=== PATIENT | male | born 1960 | race Two or more races ===

== ENCOUNTER 2017-12-04 23:02 | Emergency (ER) | payer MEDICARE, MEDICAID ==
[~2017-12-04] VITALS: Ht 167.6 cm; Wt 111.6 kg
[~2017-12-04 23:02] MED LIST: UNK INSULIN; [UNRECOGNIZED DRUG - REMARK]
--- NOTE | 2017-12-04 23:02 | NUR ---
PT A/OX4 BREATHING EFFORTLESSLY ON ROOM AIR, PT STATES HE WAS HAVING AN ARGUMENT WITH HIS SISTER AND HE STARTED HVAING A PROBLEM GETTING WORDS OUT, PT STATES HIS SPEACH IS SLURRED, IV PLACED PRIOR TO ARRIVAL AND ANOTHER PLACED IN THE ER, LABS DRAWN, AT BEDSIDE, WILL CONTINUE TO MONITOR.
--- NOTE | 2017-12-04 23:10 | NUR ---
INITIATED CODE STROKE
--- NOTE | 2017-12-04 23:11 | NUR ---
[facility] TELE STROKE LINE CONTACTED BY MIGUELINA DUKES
--- NOTE | 2017-12-04 23:14 | NUR ---
DR CURIEL ON THE PHONE WITH NEUROLOGIST DR RIVERA
--- NOTE | 2017-12-04 23:17 | NUR ---
PATIENT TAKEN TO CT
[2017-12-04] MEDS ORDERED: IOHEXOL-350 100 ML VIAL IV ONE (23:18)
[2017-12-04] MEDS ORDERED: CT SWABBABLE VALVE TRANS SET 1 EA INFUS.SET MC ONE (23:18)
[2017-12-04 23:28] LABS: BASOPHILS # (AUTO) 0.1 /CMM (0.0-0.2); BASOPHILS % (AUTO) 1.4 % (0.0-2.0); EOSINOPHILS # (AUTO) 0.2 /CMM (0.0-0.7); EOSINOPHILS % (AUTO) 4.1 % (0.0-6.0); HEMATOCRIT 33 % (39-51); HEMOGLOBIN 11.2 g/dL (13.5-17.5); LYMPHOCYTES % (AUTO) 16.4 % (20.0-44.0); MEAN CORPUSCULAR HEMOGLOBIN 30 PG (26.0-33.0); MEAN CORPUSCULAR HGB CONC 34 g/dl (31.0-36.0); MEAN CORPUSCULAR VOLUME 89 fL (80-96); MONOCYTES # (AUTO) 0.5 /CMM (0.1-1.30); MONOCYTES % (AUTO) 9.1 % (2.0-12.0); NEUTROPHILS # (AUTO) 4.1 /CMM (1.8-8.9); PLATELET COUNT (AUTO) 274 /CMM (150-450); RED BLOOD CELL COUNT(AUTO) 3.76 MIL/uL (4.5-6.0)
[2017-12-04 23:41] LABS: CALCIUM, SERUM 9.3 mg/dL (8.5-10.1); CREATININE 1.9 mg/dL (0.6-1.3); POTASSIUM 4.3 mmol/L (3.5-5.1)
[2017-12-04 23:46] LABS: ALBUMIN 3.6 g/dL (3.4-5.0); BILIRUBIN,DIRECT 0.3 mg/dL (0.0-0.2); BILIRUBIN,TOTAL 0.6 mg/dL (0.2-1.0); INR 1.15 (0.87-1.13)
[2017-12-04 23:48] LABS: TROPONIN I 0.259 ng/mL (0.00-0.056)
[2017-12-05] MEDS ORDERED: ALTEPLASE 100 MG/VIAL VIAL IV ONE
--- NOTE | 2017-12-05 00:04 | NUR ---
TPA BOLUS WAS GIVEN AND DRIP STARTED RIGHT AFTER BOLUS, TPA WAS DELAYED BECAUSE PT ORIGANLLY SAID YES TO THE TPA, THEN WANTED TO WAIT FOR BROTHER TO MAKE DECISION. MD MADE AWARE WILL CONTINUE TO MONITOR
--- NOTE | 2017-12-05 00:07 | NUR ---
CALLED [facility] TEAM . FAXED OVER FACE SHEET AND CT. EXPECTING A CALL BACK FROM A
--- NOTE | 2017-12-05 00:21 | NUR ---
PT A/OX3 BREATHING EFFORTLESSLY ON ROOM AIR, PT IN BED ON MONITOR, NO CHANGE IN PATIENTS SPEECH, PT BROTHER AT BEDSIDE, VSS, PT DENIES ANY PAIN, MD MADE AWARE WILL CONTINUE TO MONITOR.
--- NOTE | 2017-12-05 00:35 | NUR ---
PT ACCEPTED TO [facility] BY MD DAVID GUERRERO, PT IS GOING TO ICU#[id number] PHONE NUMBER TO CALL REPORT IS [phone]
--- NOTE | 2017-12-05 00:51 | NUR ---
PT SPEAKING IN FULL CLEAR SENTANCES, PT BROTHER AT BEDSIDE, MADE AWARE WILL CONTINUE TO MONITOR.
--- NOTE | 2017-12-05 01:05 | NUR ---
CCT FROM [facility] GARCIA
--- NOTE | 2017-12-05 01:18 | NUR ---
REPORT CALLED TO IRA DUKES AT [facility]
--- NOTE | 2017-12-05 01:25 | NUR ---
REPORT GIVEN TO BOUBACAR BARRETT FROM [facility]
[2017-12-05 01:45] VITALS: BP 140/76
== END 2017-12-05 01:46 | disposition short-term general hospital (02) ==
LOC: ER 23:03
DX: I63.9 Cerebral infarction, unspecified (principal); R47.01 Aphasia; R47.1 Dysarthria and anarthria; I12.9 Hypertensive chronic kidney disease with stage 1 through stage 4 chronic kidney disease, or unspecified chronic kidney disease; E11.22 Type 2 diabetes mellitus with diabetic chronic kidney disease; N18.9 Chronic kidney disease, unspecified; Z79.4 Long term (current) use of insulin
CPT/HCPCS: 36415; 37195; 70450; 70496; 70498; 71045; 80048; 80061; 80076; 82962; 84484; 85025; 85730; 86850; 93005; 99291; A4606; G0480; J2997; Q9967; Z7610

== ENCOUNTER 2018-06-10 08:00 | Outpatient (CLI) | payer MEDICARE, MEDICAID ==
[~2018-06-10 08:00] MED LIST changes: +AMLO5TAB2 PO; +CHOL100040 PO; +FENO145T35 PO; +Folic Acid PO; +INSU100V9 SQ; +ISOS30TA6 PO; +LEVO50TA8 PO; +METF500T6 PO; +METO25TA20 PO; +NITR0.4T48 SL; +SIMV40TA2 PO; +THIA100T13 PO
== END 2018-06-10 23:59 | disposition home health service (06) ==
LOC: WOU 08:00
PROVIDERS: ATTEND Podiatrist Foot & Ankle Surgery
DX: I87.2 Venous insufficiency (chronic) (peripheral) (principal); E11.42 Type 2 diabetes mellitus with diabetic polyneuropathy; R60.0 Localized edema; I11.0 Hypertensive heart disease with heart failure; I50.9 Heart failure, unspecified; Z87.891 Personal history of nicotine dependence; K70.30 Alcoholic cirrhosis of liver without ascites; E03.9 Hypothyroidism, unspecified; E78.5 Hyperlipidemia, unspecified
CPT/HCPCS: G0463; Z7610; A6402

== ENCOUNTER 2018-08-25 20:25 | Emergency (ER) | payer MEDICARE, MEDICAID ==
[~2018-08-25] VITALS: Ht 172.7 cm; Wt 116.6 kg
[~2018-08-25 20:25] MED LIST changes: -AMLO5TAB2 PO; +AMLO5TAB7 PO; +METF-440 PO; -METF500T6 PO
[2018-08-25 22:20] VITALS: BP 112/57
== END 2018-08-25 23:43 | disposition home or self-care (01) ==
LOC: ER 20:29
DX: S01.111D Laceration without foreign body of right eyelid and periocular area, subsequent encounter (principal); I10 Essential (primary) hypertension; E11.9 Type 2 diabetes mellitus without complications; E78.00 Pure hypercholesterolemia, unspecified; Z98.890 Other specified postprocedural states; Z79.4 Long term (current) use of insulin; X58.XXXD Exposure to other specified factors, subsequent encounter
CPT/HCPCS: A4606; A6402; Z7502; Z7610

== ENCOUNTER 2018-09-02 19:45 | Emergency (ER) | payer MEDICARE, MEDICAID ==
[~2018-09-02] VITALS: Ht 172.7 cm; Wt 117.9 kg
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
[2018-09-02 20:45] VITALS: BP 156/84
[2018-09-02] MEDS ORDERED: BACI/NEOM/POLY B OINT PKT 1 UDPKT PACKET ONE (20:54)
[2018-09-02] MEDS ORDERED: BACI/NEOM/POLY B OINT PKT 1 UDPKT PACKET TP ONE (21:00)
[2018-10-20] MEDS ORDERED: METO2.5T7 PO (09:29)
[2018-10-20] MEDS ORDERED: SPIR25TA PO (09:29)
[2018-10-20] MEDS ORDERED: BUME1TAB4 PO (09:29)
[2018-10-20] MEDS ORDERED: *INS REG SQ (09:29)
== END 2018-09-02 21:55 | disposition home or self-care (01) ==
LOC: ER 19:47
DX: S06.9X9A Unspecified intracranial injury with loss of consciousness of unspecified duration, initial encounter (principal); S00.33XA Contusion of nose, initial encounter; K74.60 Unspecified cirrhosis of liver; K46.9 Unspecified abdominal hernia without obstruction or gangrene; I10 Essential (primary) hypertension; E11.9 Type 2 diabetes mellitus without complications; E78.00 Pure hypercholesterolemia, unspecified; F10.10 Alcohol abuse, uncomplicated; G31.9 Degenerative disease of nervous system, unspecified; R60.0 Localized edema; Y90.9 Presence of alcohol in blood, level not specified; Z98.890 Other specified postprocedural states; Z79.4 Long term (current) use of insulin; Y04.2XXA Assault by strike against or bumped into by another person, initial encounter; Y93.89 Activity, other specified; Y92.89 Other specified places as the place of occurrence of the external cause; Y99.8 Other external cause status
CPT/HCPCS: 70450-TC; A4606; A6402; L0172; Z7610

== ENCOUNTER 2018-10-03 09:54 | Outpatient (CLI) | payer MEDICARE, MEDICAID ==
[2018-10-20] MEDS ORDERED: BUME1TAB4 PO (09:29)
[2018-10-20] MEDS ORDERED: *INS REG SQ (09:29)
[2018-10-20] MEDS ORDERED: METO2.5T7 PO (09:29)
[2018-10-20] MEDS ORDERED: SPIR25TA PO (09:29)
== END 2018-10-03 23:59 | disposition home or self-care (01) ==
LOC: WOU 09:54
PROVIDERS: ATTEND Podiatrist Foot & Ankle Surgery
DX: I87.331 Chronic venous hypertension (idiopathic) with ulcer and inflammation of right lower extremity (principal); L97.812 Non-pressure chronic ulcer of other part of right lower leg with fat layer exposed; I87.322 Chronic venous hypertension (idiopathic) with inflammation of left lower extremity; L03.116 Cellulitis of left lower limb; L03.115 Cellulitis of right lower limb; Z87.891 Personal history of nicotine dependence; E11.42 Type 2 diabetes mellitus with diabetic polyneuropathy; R60.0 Localized edema; I11.0 Hypertensive heart disease with heart failure; I50.9 Heart failure, unspecified; E03.9 Hypothyroidism, unspecified; E78.5 Hyperlipidemia, unspecified
CPT/HCPCS: 11042; A6402; A6452 ×2; Z7610

== ENCOUNTER 2018-10-10 09:39 | Inpatient (IN) | payer MEDICARE, MEDICAID ==
[~2018-10-10] VITALS: Ht 175.3 cm; Wt 99.3 kg
--- NOTE | 2018-10-10 10:04 | NUR ---
PT BROUGHT OVER FROM WOUND CLINIC FOR SOB AND BEING DIZZY PT DIABETIC BLOOD SUGAR 181 PT ALERT ORIENTED X 4 CLOTHES DAMP REMOVED AND PLACED IN [facility]OSP[facility] PIV ESTABLISHED PLACED ON MONITOR NSR MD EVALUATING PT WILL MONITOR PT AND ORDERS
[2018-10-10 10:09] LABS: BASOPHILS # (AUTO) 0.1 /CMM (0.0-0.2); BASOPHILS % (AUTO) 0.9 % (0.0-2.0); HEMATOCRIT 29 % (39-51); HEMOGLOBIN 9.5 g/dL (13.5-17.5); LYMPHOCYTES # (AUTO) 0.4 /CMM (0.8-4.8); LYMPHOCYTES % (AUTO) 5.9 % (20.0-44.0); MEAN CORPUSCULAR HGB CONC 33 g/dl (31.0-36.0); MEAN CORPUSCULAR VOLUME 94 fL (80-96); MONOCYTES # (AUTO) 0.6 /CMM (0.1-1.30); MONOCYTES % (AUTO) 9.9 % (2.0-12.0); NEUTROPHILS # (AUTO) 4.6 /CMM (1.8-8.9); NEUTROPHILS % (AUTO) 72.3 % (43.0-81.0); PLATELET COUNT (AUTO) 286 /CMM (150-450); RED BLOOD CELL COUNT(AUTO) 3.07 MIL/uL (4.5-6.0); WHITE BLOOD COUNT (AUTO) 6.3 K/uL (4.3-11.0)
[2018-10-10 10:33] LABS: CALCIUM, SERUM 8.3 mg/dL (8.5-10.1); CREATININE 3.5 mg/dL (0.6-1.3); POTASSIUM 4.9 mmol/L (3.5-5.1)
[2018-10-10] MEDS ORDERED: ASPIRIN EC 325 MG TABLET.DR PO ONE ×2 (11:30→11:37)
[2018-10-10] MEDS ORDERED: FUROSEMIDE 40 MG/4 ML VIAL IV ONE (11:30)
[2018-10-10] MEDS ORDERED: FUROSEMIDE 40 MG/4 ML VIAL ONE (11:37)
--- NOTE | 2018-10-10 11:56 | NUR ---
CALLED [employer] AUTOMOTIVE SERVICE CONSULTANT WAS PAGED.
--- NOTE | 2018-10-10 11:56 | NUR ---
CALLED NURSING METAL SASH SETTER REQUESTING A TELE BED.
--- NOTE | 2018-10-10 12:47 | NUR ---
PT RESTING COMFORTABLE MONITORED NO SIGNS OF DISTRESS NOTED SATURATING 95% VISITOR AT BEDSIDE CONVERSING WITH PT. PENDING ADMIT.
[2018-10-10 13:30] VITALS: BP 117/70
[2018-10-10] MEDS ORDERED: MAG HYDROX/AL HYDROX/SIMETH 30 ML UDC PO PRN (13:30)
[2018-10-10] MEDS ORDERED: ASPIRIN 325 MG TABLET PO ONE (13:30)
[2018-10-10] MEDS ORDERED: ACETAMINOPHEN 325 MG TABLET PO PRN (13:30)
[2018-10-10] MEDS ORDERED: MAGNESIUM HYDROXIDE 30 ML UDC PO PRN (13:30)
[2018-10-10] MEDS ORDERED: ZOLPIDEM TARTRATE 5 MG TABLET PO PRN (13:30)
[2018-10-10] MEDS ORDERED: ONDANSETRON HCL/PF 4 MG/2 ML VIAL IVP PRN (13:30)
[2018-10-10] MEDS ORDERED: DEXTROSE 50%-WATER 50 ML DISP.SYRIN IV PRN (13:30)
[2018-10-10] MEDS ORDERED: Z GUARD REMEDY 2 OZ OINT TP PRN (13:30)
[2018-10-10] MEDS ORDERED: ASPIRIN 325 MG TABLET ONE (13:42)
--- NOTE | 2018-10-10 14:00 | NUR ---
CORE DRILLER NOTE RECEIVED REPORT FROM ENTRY SPECIALISTS AND RECEIVED PATIENT ON A GURNEY ACCOMPANIED BY WEEKEND ANCHOR AND ENTRY SPECIALISTS. PATIENT ORIENTED TO UNIT, PLACED ON REVERSE UNIT OPERATOR FISHERMAN, SINUS BRADYCARDIA WITH HEART RATE OF 56 ON THE MONITOR. SOME LABORED BREATHING NOTED AT REST BUT SPO2 WNL. ON O2 VIA NASAL CANNULA AT 2LPM. PATIENT ABLE TO MAKE NEEDS KNOWN, COMPLAINING OF SOME DISCOMFORT IN LOWER EXTREMITIES. PICTURES TAKEN OF LOWER EXTREMITIES AND REWRAPPED WITH XEROFORM AND KERLIX. IV SITE ON RIGHT HAND INTACT SALINE LOCK. SIDE RAILS UP, BED IN LOW LOCKED POSITION, CALL LIGHT WITHIN REACH, WILL CONTINUE TO MONITOR CLOSELY.
[2018-10-10 16:00] VITALS: BP 112/55
[2018-10-10] MEDS: IV NS 0.9% 1,000 ML IV PRN (18:55)
[2018-10-10] MEDS: INSULIN REGULAR, HUMAN 100 UNIT/ML 3 ML VIAL SQ PRN (18:58)
[2018-10-10] MEDS: BLOOD SUGAR DIAGNOSTIC 1 EACH STRIP VI SCH ×2 (18:58→22:19)
--- NOTE | 2018-10-10 19:54 | NUR ---
OLIVER FILTER OPERATOR NOTE PATIENT RESTING IN BED IN STABLE CONDITION, BREATHING LESS LABORED THAN EARLIER TODAY. IV FLUIDS INFUSING ORDERED, SIDE RAILS UP, BED LOW AND LOCKED, CALL LIGHT WITHIN REACH, ENDORSED TO DIRECTOR OF LAND NURSE FOR CONTINUITY OF CARE.
[2018-10-10 20:00] VITALS: BP 122/64
[2018-10-10] MEDS ORDERED: METOPROLOL TARTRATE 25 MG TABLET PO SCH (21:00)
[2018-10-10] MEDS: CARVEDILOL 12.5 MG TABLET PO SCH (21:54)
[2018-10-10] MEDS ORDERED: SIMVASTATIN 40 MG TABLET PO SCH (22:00)
[2018-10-10] MEDS: ATORVASTATIN 40 MG TABLET PO SCH (22:09)
[2018-10-10] MEDS: *INSULIN REGULAR(HUMULIN R)HUM 100 UNIT/ML VIAL SQ PRN (22:19)
[2018-10-11] VITALS: BP 99/46
[2018-10-11 04:00] VITALS: BP 121/58
[2018-10-11] MEDS: IV NS 0.9% 1,000 ML IV PRN (06:24)
[2018-10-11 06:25] LABS: BASOPHILS % (AUTO) 0.7 % (0.0-2.0); EOSINOPHILS % (AUTO) 14.4 % (0.0-6.0); HEMATOCRIT 28 % (39-51); HEMOGLOBIN 9.2 g/dL (13.5-17.5); LYMPHOCYTES # (AUTO) 0.4 /CMM (0.8-4.8); LYMPHOCYTES % (AUTO) 7.9 % (20.0-44.0); MEAN CORPUSCULAR HGB CONC 34 g/dl (31.0-36.0); MEAN CORPUSCULAR VOLUME 95 fL (80-96); MONOCYTES # (AUTO) 0.4 /CMM (0.1-1.30); NEUTROPHILS # (AUTO) 3.8 /CMM (1.8-8.9); PLATELET COUNT (AUTO) 274 /CMM (150-450); RED BLOOD CELL COUNT(AUTO) 2.89 MIL/uL (4.5-6.0); WHITE BLOOD COUNT (AUTO) 5.4 K/uL (4.3-11.0)
[2018-10-11] MEDS: BLOOD SUGAR DIAGNOSTIC 1 EACH STRIP VI SCH ×4 (06:25→22:36)
[2018-10-11] MEDS: INSULIN REGULAR, HUMAN 100 UNIT/ML 3 ML VIAL SQ PRN (06:25)
--- NOTE | 2018-10-11 06:32 | NUR ---
RN NOTES PATIENT IN BED RESTING COMFORTABLY WITH NO RESPIRATORY DISTRESS OR SHORTNESS OF BREATH. BREATHING EVEN AND UNLABORED. NO COMPLAINT OF PAIN OR DISCOMFORT. ALERT AND ORIENTED. ABLE TO VERBALIZE NEEDS. NO SIGNIFICANT CHANGE OF CONDITION. WILL ENDORSE TO AM SHIFT FOR CONTINUITY OF CARE.
[2018-10-11 06:41] LABS: CREATININE 3.4 mg/dL (0.6-1.3); PHOSPHORUS 7.6 mg/dL (2.5-4.9)
--- NOTE | 2018-10-11 07:30 | NUR ---
MS RN OPENING NOTE PATIENT RECEIVED IN BED SLEEPING. PATIENT AAOX4. PATIENT C/O OF SOB, 2L O2 VIA NC GIVEN, SOB RECEDED. PATIENT DENIES ANY C/O OF PAIN OR DISCOMFORT. FAMILY GAVE HOME MEDS AND MEDS RECONCILED, NOTIFIED FOR REVIEW. ALL NEEDS ATTENDED. BED IN LOWEST LOCKED POSITION, SIDE RAILS UP X 2, CALL LIGHT AT BESIDE.
[2018-10-11 08:00] VITALS: BP 103/56
[2018-10-11 08:20] LABS: MAGNESIUM 4.1 mg/dL (1.8-2.4)
[2018-10-11] MEDS ORDERED: LEVALBUTEROL HCL NEB 1.25 MG/0.5 ML VIAL.NEB IH SCH (08:30)
--- NOTE | 2018-10-11 08:30 | NUR ---
MS RN NOTE MD AT BEDSIDE FOR BEDSIDE DEBRIDEMENT OF BLE.
[2018-10-11] MEDS ORDERED: CARV12.52 PO (08:33)
[2018-10-11] MEDS: CHOLECALCIFEROL 1,000 UNIT TABLET (VIT D3) PO SCH (08:34)
[2018-10-11] MEDS: FOLIC ACID 1 MG TABLET PO SCH (08:34)
[2018-10-11] MEDS: FENOFIBRATE NANOCRYS (145 MG) 145 MG TABLET PO SCH (08:34)
[2018-10-11] MEDS: AMLODIPINE BESYLATE 5 MG TABLET PO SCH (08:34)
[2018-10-11] MEDS: CARVEDILOL 12.5 MG TABLET PO SCH ×2 (08:34→22:02)
[2018-10-11] MEDS ORDERED: BUME2TAB3 PO (08:34)
[2018-10-11] MEDS ORDERED: CLOP75TA15 PO (08:35)
[2018-10-11] MEDS: THIAMINE HCL 100 MG TABLET PO SCH (08:35)
[2018-10-11] MEDS: LEVOTHYROXINE SODIUM 75 MCG TABLET PO SCH (08:36)
[2018-10-11] MEDS ORDERED: FURO-144 PO (08:37)
--- NOTE | 2018-10-11 08:38 | NUR ---
BROTHER BROUGHT HOME MEDS REVIEWED WITH DR. GARCIA,PRIMARY TO TO REVIEW MEDS AGAIN.
--- NOTE | 2018-10-11 08:49 | NUR ---
WOUND CARE CONSULT: DEFER TO PODIATRY FOR WOUND TREATMENT PLAN. WILL SEE PRN. ALL PRESSURE ULCER PREVENTION MEASURES IN PLACE AND DISCUSSED WITH NURSING STAFF. WILL SEE PRN.
--- NOTE | 2018-10-11 08:56 | NUR ---
MS RN NOTE HELD CARVEDILOL, PATIENT HR SINUS LUCY 55 ON TELE MONITOR. PATIENT DENIES S/S OF CHEST PAIN, MD NOTIFIED. NO NEW ORDERS GIVEN. RN WILL CONTINUE TO MONITOR.
[2018-10-11] MEDS ORDERED: LEVOTHYROXINE SODIUM 50 MCG TABLET PO SCH (09:00)
[2018-10-11 09:06] LABS: THYROID STIMULATING HORMONE 3.837 uIU/mL (0.358-3.74)
[2018-10-11] MEDS: ALBUTEROL FS 2.5 MG/3 ML VIAL.NEB NEB SCH ×3 (10:26→19:45)
[2018-10-11] MEDS ORDERED: BUMETANIDE INJ 3 MG in IV NS 0.9% 48 ML IV ONE (12:30)
[2018-10-11] MEDS: *INSULIN REGULAR(HUMULIN R)HUM 100 UNIT/ML VIAL SQ PRN ×2 (12:30→22:35)
[2018-10-11] MEDS: METOLAZONE 2.5 MG TABLET PO SCH (12:51)
[2018-10-11 13:09] LABS: ALBUMIN 3.2 g/dL (3.4-5.0); BILIRUBIN,DIRECT 0.1 mg/dL (0.0-0.2); BILIRUBIN,TOTAL 0.4 mg/dL (0.2-1.0); TOTAL PROTEIN, SERUM 7.6 g/dL (6.4-8.2)
[2018-10-11] MEDS: ACETYLCYSTEINE 10% SOLN 400 MG/4 ML VIAL NEB SCH ×3 (13:35→23:40)
--- NOTE | 2018-10-11 13:39 | NUR ---
Social service consult requested by Dr. Amanda for possible homelessness. Pt. is a 58 year old male who was admitted to [facility] for CHF. Upon consulting with case hardener Cheryl, ALEJANDRO was informed by her that pt. is not homeless. He resides with his brother Rudolph. Pt. will be going to a higher level of care such as a SNF. No other social service needs are requested at this time. SW is available, if needed.
[2018-10-11 13:55] LABS: IRON, SERUM 32 ug/dl (50-175); TOTAL IRON BINDING CAPACITY 247 ug/dl (250-450)
[2018-10-11 16:00] VITALS: BP 127/67
--- NOTE | 2018-10-11 18:45 | NUR ---
MS ENDING NOTES PATIENT TOLERATED TREATMENT WELL. NO S/S OF ACUTE CHANGES NO S/S OF DISTRESS. PATIENT HAS HAD ALL NEEDS ATTENDED TOO. PATIENT STABLE. PLAN OF CARE ENDORSED TO PM SHIFT. BED IN LOWEST LOCKED POSITION, SIDE RAILS UP X2, NO C/O PAIN OR DISCOMFORT. CALL LIGHT AT HAND.
[2018-10-11 20:00] VITALS: BP 121/55
[2018-10-11] MEDS: ATORVASTATIN 40 MG TABLET PO SCH (22:02)
[2018-10-12] MEDS: ALBUTEROL FS 2.5 MG/3 ML VIAL.NEB NEB SCH ×4 (01:17→20:13)
[2018-10-12 04:00] VITALS: BP 123/70
[2018-10-12] MEDS: BLOOD SUGAR DIAGNOSTIC 1 EACH STRIP VI SCH ×4 (06:09→22:05)
[2018-10-12] MEDS: INSULIN REGULAR, HUMAN 100 UNIT/ML 3 ML VIAL SQ PRN ×2 (06:09→17:49)
[2018-10-12 06:28] LABS: APPEARANCE,URINE CLEAR (CLEAR); BILIRUBIN,URINE NEGATIVE (NEGATIVE); BLOOD, URINE NEGATIVE Ery/uL (NEGATIVE); COLOR,URINE YELLOW (YELLOW); KETONES,URINE NEGATIVE (NEGATIVE); LEUKOCYTE ESTERASE ,URINE NEGATIVE (NEGATIVE); NITRITE, URINE NEGATIVE (NEGATIVE); PROTEIN,URINE NEGATIVE (NEGATIVE); UGLUCOSE NEGATIVE (NEGATIVE); UROBILINOGEN,URINE 0.2 EU/dL (0.2)
--- NOTE | 2018-10-12 06:32 | NUR ---
RN NOTES REMAIN AFEBRILE WITH SKIN WARM AND DRY TO TOUCH. VITAL SIGNS WNL NO DISTRESS NOTED. BREATHING EVEN AND UNLABORED. NO PHYSICAL MANIFESTATION OF PAIN OR DISCOMFORT. ALERT AND RESPONSIVE WITH CONFUSION. NO SIGNIFICANT CHANGE OF CONDITION OF THIS TIME. KEPT CLEAN AND DRY. WILL ENDORSE TO NEXT SHIFT FOR CONTINUITY OF CARE. Addendum: 10/12/18 at 0633 by CINDY MONTES RN ALERT AND ORIENTED. STILL NPO.
[2018-10-12] MEDS: ACETYLCYSTEINE 10% SOLN 400 MG/4 ML VIAL NEB SCH ×3 (07:30→23:24)
[2018-10-12 07:40] LABS: EOSINOPHILS % (AUTO) 15.1 % (0.0-6.0); HEMATOCRIT 28 % (39-51); HEMOGLOBIN 9.1 g/dL (13.5-17.5); LYMPHOCYTES # (AUTO) 0.4 /CMM (0.8-4.8); MEAN CORPUSCULAR HGB CONC 33 g/dl (31.0-36.0); MEAN CORPUSCULAR VOLUME 95 fL (80-96); MONOCYTES # (AUTO) 0.5 /CMM (0.1-1.30); MONOCYTES % (AUTO) 9.6 % (2.0-12.0); NEUTROPHILS # (AUTO) 3.1 /CMM (1.8-8.9); NEUTROPHILS % (AUTO) 65.3 % (43.0-81.0); PLATELET COUNT (AUTO) 248 /CMM (150-450); RED BLOOD CELL COUNT(AUTO) 2.91 MIL/uL (4.5-6.0); WHITE BLOOD COUNT (AUTO) 4.7 K/uL (4.3-11.0)
[2018-10-12 07:49] LABS: ALBUMIN 3.1 g/dL (3.4-5.0); BILIRUBIN,TOTAL 0.7 mg/dL (0.2-1.0); CALCIUM, SERUM 8.3 mg/dL (8.5-10.1); CREATININE 3.1 mg/dL (0.6-1.3); PHOSPHORUS 7.2 mg/dL (2.5-4.9); POTASSIUM 4.4 mmol/L (3.5-5.1); TOTAL PROTEIN, SERUM 7.3 g/dL (6.4-8.2)
[2018-10-12 08:00] VITALS: BP 109/53
--- NOTE | 2018-10-12 08:00 | NUR ---
MS RN OPENING NOTE PATIENT RECEIVED IN BED AWAKE. PATIENT AAOX4. PATIENT C/O OF SOB, 2L O2 VIA NC GIVEN, SOB RECEDED. PATIENT DENIES ANY C/O OF PAIN OR DISCOMFORT.ON NPO FOR PENDING HD CATH PLACEMENT.NEEDS ATTENDED. BED IN LOWEST LOCKED POSITION, SIDE RAILS UP X 2, CALL LIGHT AT BESIDE.
[2018-10-12 08:23] LABS: MAGNESIUM 4.1 mg/dL (1.8-2.4)
[2018-10-12 08:56] LABS: CREATININE, URINE 115.2 MG/DL (30.0-125.0); URINE TOTAL PROTEIN 9.4 mg/dL (0-11.9)
[2018-10-12] MEDS: CARVEDILOL 12.5 MG TABLET PO SCH ×2 (09:00→21:25)
[2018-10-12] MEDS: AMLODIPINE BESYLATE 5 MG TABLET PO SCH (09:00)
--- NOTE | 2018-10-12 10:00 | NUR ---
CLARIFIED WITH DR CHAVIS IF THE PT IS GOING TO HAVE HD PLACEMENT TODAY SINCE PT HAS BEEN ON NPO.DR CHAVIS STATED NO HD PLACEMENT SX TODAY AND JUST RESUME HIS DIET.DR CHAVIS AWARE OF PT'S HIGH MG AND K+ LEVEL WELL WITH NO NEW ORDER.CLARIFIED WITH DR CHAVIS ABOUT THE RECOMMENDATION OF DISCONTINUING PT'S IVF AND STARTING PT ON DIURETIC DUE TO FLUID OVERLOAD AND CHF CONDITION,DR CHAVIS STATED TO CONTINUE ADMINISTERING THE IVF STILL AND CARRIED OUT.
[2018-10-12] MEDS: LEVOTHYROXINE SODIUM 75 MCG TABLET PO SCH (10:06)
[2018-10-12] MEDS: FOLIC ACID 1 MG TABLET PO SCH (10:07)
[2018-10-12] MEDS: CHOLECALCIFEROL 1,000 UNIT TABLET (VIT D3) PO SCH (10:07)
[2018-10-12] MEDS: THIAMINE HCL 100 MG TABLET PO SCH (10:07)
[2018-10-12] MEDS: FENOFIBRATE NANOCRYS (145 MG) 145 MG TABLET PO SCH (10:07)
[2018-10-12] MEDS: METOLAZONE 2.5 MG TABLET PO SCH (10:07)
--- NOTE | 2018-10-12 10:10 | NUR ---
INFORMED DR SAHNI OF DIETARY RECOMMENDATIONS OF MVI WITH MIN,ZINC AND VIT C-WHICH HE AGREED TO CARRY OUT,WITH ORDERS MADE AND CARRIED OUT.
[2018-10-12] MEDS: SOD FERRIC GLUC 125 MG in IV NS 0.9% 100 ML IV SCH (14:39)
[2018-10-12 15:27] LABS: OCCULT BLOOD STOOL POSITIVE (NEGATIVE)
[2018-10-12 16:00] VITALS: BP 119/53
[2018-10-12 20:00] VITALS: BP 113/83
[2018-10-12] MEDS: ATORVASTATIN 40 MG TABLET PO SCH (21:25)
[2018-10-12] MEDS: *INSULIN REGULAR(HUMULIN R)HUM 100 UNIT/ML VIAL SQ PRN (21:35)
[2018-10-13] MEDS: ALBUTEROL FS 2.5 MG/3 ML VIAL.NEB NEB SCH ×4 (01:30→19:30)
[2018-10-13 04:00] VITALS: BP 111/78
[2018-10-13 06:23] LABS: BASOPHILS % (AUTO) 0.7 % (0.0-2.0); EOSINOPHILS % (AUTO) 14.7 % (0.0-6.0); HEMATOCRIT 28 % (39-51); HEMOGLOBIN 9.2 g/dL (13.5-17.5); LYMPHOCYTES # (AUTO) 0.4 /CMM (0.8-4.8); LYMPHOCYTES % (AUTO) 7.7 % (20.0-44.0); MEAN CORPUSCULAR HGB CONC 33 g/dl (31.0-36.0); MEAN CORPUSCULAR VOLUME 94 fL (80-96); MONOCYTES # (AUTO) 0.4 /CMM (0.1-1.30); MONOCYTES % (AUTO) 9.7 % (2.0-12.0); NEUTROPHILS # (AUTO) 3.1 /CMM (1.8-8.9); NEUTROPHILS % (AUTO) 67.2 % (43.0-81.0); PLATELET COUNT (AUTO) 238 /CMM (150-450); RED BLOOD CELL COUNT(AUTO) 2.94 MIL/uL (4.5-6.0); WHITE BLOOD COUNT (AUTO) 4.6 K/uL (4.3-11.0)
--- NOTE | 2018-10-13 06:25 | NUR ---
RN NOTES RESTING COMFORTABLY IN BED WITH NO DISTRESS NOTED. BREATHING EVEN AND UNLABORED. NO COMPLAINT OF PAIN OR DISCOMFORT. NO SIGNIFICANT CHANGE OF CONDITION. VITAL SIGNS WNL. WILL ENDORSE TO NEXT SHIFT FOR CONTINUITY OF CARE.
[2018-10-13 06:35] LABS: ALBUMIN 3.1 g/dL (3.4-5.0); BILIRUBIN,TOTAL 0.6 mg/dL (0.2-1.0); CALCIUM, SERUM 8.4 mg/dL (8.5-10.1); CREATININE 2.8 mg/dL (0.6-1.3); PHOSPHORUS 6.8 mg/dL (2.5-4.9); TOTAL PROTEIN, SERUM 7.2 g/dL (6.4-8.2)
[2018-10-13 06:42] LABS: MAGNESIUM 4.2 mg/dL (1.8-2.4)
[2018-10-13] MEDS: BLOOD SUGAR DIAGNOSTIC 1 EACH STRIP VI SCH ×4 (07:19→21:31)
[2018-10-13] MEDS: LEVOTHYROXINE SODIUM 75 MCG TABLET PO SCH (07:22)
--- NOTE | 2018-10-13 07:25 | NUR ---
RN OPENING NOTES RECEIVED PT. IN BED A&OX4. BREATHING UNLABORED ON ROOM AIR. NO S/S OF ACUTE DISTRESS. PT. DENIES DIZZINESS. PT. HAS CLEAN AND DRY ROSARIO BANDAGES WRAPPED AROUND BOTH LOWER EXTREMITIES. BED IS IN LOWEST, AND LOCKED POSITION. 2 SIDE RAILS UP, AND INSTRUCTED PT. TO USE CALL LIGHT FOR ASSISTANCE. ALL NEEDS MET. WILL CONTINUE TO ASSESS AND MONITOR.
[2018-10-13] MEDS: ACETYLCYSTEINE 10% SOLN 400 MG/4 ML VIAL NEB SCH ×3 (07:51→23:30)
[2018-10-13 08:00] VITALS: BP 122/59
[2018-10-13] MEDS: MULTIPLE VIT (LYCOPENE/FA/MV,CA,IRON,MIN/LUT)1 TAB PO SCH (09:01)
[2018-10-13] MEDS: ZINC SULFATE 220 MG CAPSULE PO SCH (09:01)
[2018-10-13] MEDS: CHOLECALCIFEROL 1,000 UNIT TABLET (VIT D3) PO SCH (09:02)
[2018-10-13] MEDS: ASCORBIC ACID 500 MG TABLET PO SCH (09:02)
[2018-10-13] MEDS: THIAMINE HCL 100 MG TABLET PO SCH (09:02)
[2018-10-13] MEDS: FOLIC ACID 1 MG TABLET PO SCH (09:03)
[2018-10-13] MEDS: METOLAZONE 2.5 MG TABLET PO SCH (09:03)
[2018-10-13] MEDS: FENOFIBRATE NANOCRYS (145 MG) 145 MG TABLET PO SCH (09:03)
[2018-10-13] MEDS: AMLODIPINE BESYLATE 5 MG TABLET PO SCH (09:12)
[2018-10-13] MEDS: CARVEDILOL 12.5 MG TABLET PO SCH ×2 (10:50→21:21)
[2018-10-13] MEDS: INSULIN REGULAR, HUMAN 100 UNIT/ML 3 ML VIAL SQ PRN ×2 (11:58→17:41)
[2018-10-13 12:00] VITALS: BP 118/73
[2018-10-13] MEDS: SOD FERRIC GLUC 125 MG in IV NS 0.9% 100 ML IV SCH (14:49)
--- NOTE | 2018-10-13 15:00 | NUR ---
PT. WAS SEEN AND EXAMINED BY A LAMBSKIN TRIMMER. PER GI NEW ORDERS GIVEN FOR A PARACENTESIS, AND AN EGD CONSENTS. WILL PLACE PT. ON NPO AFTER MIDNIGHT.
[2018-10-13 16:00] VITALS: BP 117/56
--- NOTE | 2018-10-13 18:50 | NUR ---
WOUND CARE WAS PERFORMED TO BOTH LOWER EXTREMITIES PER WOUND CARE INSTRUCTIONS. PT. TOLERATED PROCEDURE WELL.
--- NOTE | 2018-10-13 18:55 | NUR ---
RN CLOSING NOTES PT. IS IN BED A&OX4. BREATHING UNLABORED ON ROOM AIR. NO S/S OF ACUTE DISTRESS. PT. HAS NEW CLEAN AND DRY ROSARIO BANDAGES WRAPPED AROUND BOTH LOWER EXTREMITIES. BED IS IN LOWEST, AND LOCKED POSITION. 2 SIDE RAILS UP, AND INSTRUCTED PT. TO USE CALL LIGHT FOR ASSISTANCE. ALL NEEDS MET. WILL ENDORSE REPORT TO NURSE.
[2018-10-13 20:00] VITALS: BP 110/57
[2018-10-13] MEDS: ATORVASTATIN 40 MG TABLET PO SCH (21:21)
[2018-10-13] MEDS: *INSULIN REGULAR(HUMULIN R)HUM 100 UNIT/ML VIAL SQ PRN (21:32)
[2018-10-14] MEDS: ALBUTEROL FS 2.5 MG/3 ML VIAL.NEB NEB SCH ×4 (01:30→19:55)
[2018-10-14] MEDS: ACETYLCYSTEINE 10% SOLN 400 MG/4 ML VIAL NEB SCH ×3 (01:42→14:20)
[2018-10-14 04:00] VITALS: BP 128/64
[2018-10-14] MEDS: INSULIN REGULAR, HUMAN 100 UNIT/ML 3 ML VIAL SQ PRN (06:43)
--- NOTE | 2018-10-14 07:00 | NUR ---
MS RN OPENING NOTES RECEIVED PT IN BED. A/OX4. PT IS AWAITING EGD AND PARACENTESIS PROCEDURES TODAY PER PM NURSE. PT IS NPO. LUNG SOUNDS CLEAR TO AUSCULTATION WITH DIMINISHED LUNG BASES. PT COMPLAINING OF ITCHY SKIN WITH PINPOINT SCABS GENERALIZED. PT HAS DISTENDED ABD. EDEMA BLE. PT REFUSES TO WEAR O2 AT THIS; NO COMPLAINTS OF RESP DISTRESS. IV SITE NO S/SX OF INFECTION. BED IN LOCKED/LOWEST POSITION. CALL LIGHT IN REACH. WILL CONT TO MONITOR.
[2018-10-14 08:00] VITALS: BP 113/52
[2018-10-14 08:05] LABS: BASOPHILS % (AUTO) 1.1 % (0.0-2.0); EOSINOPHILS % (AUTO) 14.4 % (0.0-6.0); HEMATOCRIT 28 % (39-51); HEMOGLOBIN 9.4 g/dL (13.5-17.5); LYMPHOCYTES # (AUTO) 0.4 /CMM (0.8-4.8); LYMPHOCYTES % (AUTO) 8.4 % (20.0-44.0); MEAN CORPUSCULAR HGB CONC 34 g/dl (31.0-36.0); MEAN CORPUSCULAR VOLUME 93 fL (80-96); MONOCYTES # (AUTO) 0.5 /CMM (0.1-1.30); NEUTROPHILS # (AUTO) 2.8 /CMM (1.8-8.9); NEUTROPHILS % (AUTO) 65.1 % (43.0-81.0); PLATELET COUNT (AUTO) 222 /CMM (150-450); RED BLOOD CELL COUNT(AUTO) 2.98 MIL/uL (4.5-6.0); WHITE BLOOD COUNT (AUTO) 4.3 K/uL (4.3-11.0)
[2018-10-14 08:22] LABS: CALCIUM, SERUM 8.2 mg/dL (8.5-10.1); CREATININE 2.6 mg/dL (0.6-1.3); POTASSIUM 3.8 mmol/L (3.5-5.1)
[2018-10-14] MEDS: BLOOD SUGAR DIAGNOSTIC 1 EACH STRIP VI SCH ×4 (08:40→21:30)
[2018-10-14] MEDS: CARVEDILOL 12.5 MG TABLET PO SCH ×2 (09:00→21:00)
--- NOTE | 2018-10-14 09:15 | NUR ---
MS RN NOTES PARACENTESIS BEING PERFORMED AT BEDSIDE. PT TOLERATING PROCEDURE WELL. WILL CONT TO MONITOR FOLLOWING PROCEDURE.
[2018-10-14] MEDS: LEVOTHYROXINE SODIUM 75 MCG TABLET PO SCH (09:16)
[2018-10-14] MEDS: ZINC SULFATE 220 MG CAPSULE PO SCH (09:16)
[2018-10-14] MEDS: MULTIPLE VIT (LYCOPENE/FA/MV,CA,IRON,MIN/LUT)1 TAB PO SCH (09:16)
[2018-10-14] MEDS: METOLAZONE 2.5 MG TABLET PO SCH (09:16)
[2018-10-14] MEDS: ASCORBIC ACID 500 MG TABLET PO SCH (09:16)
[2018-10-14] MEDS: FENOFIBRATE NANOCRYS (145 MG) 145 MG TABLET PO SCH (09:16)
[2018-10-14] MEDS: AMLODIPINE BESYLATE 5 MG TABLET PO SCH (09:17)
[2018-10-14] MEDS: THIAMINE HCL 100 MG TABLET PO SCH (09:17)
[2018-10-14] MEDS: CHOLECALCIFEROL 1,000 UNIT TABLET (VIT D3) PO SCH (09:17)
[2018-10-14] MEDS: FOLIC ACID 1 MG TABLET PO SCH (09:17)
--- NOTE | 2018-10-14 09:30 | NUR ---
MS RN NOTES ASCITES FLUID SENT TO LAB.
--- NOTE | 2018-10-14 09:50 | NUR ---
MS RN NOTES DR GARCIA APPROVES REMOVING MAX AMT FLUID DURING PARACENTESIS. WILL CONTINUE TO MONITOR.
--- NOTE | 2018-10-14 10:32 | NUR ---
DR MUIR GAVE VERBAL CONSENT TO REMOVE MAX AMOUNT OF FLUID DURING PARACENTESIS. REMOVED 6900 ML WAS REMOVED FROM RLQ.
[2018-10-14] MEDS: SOD FERRIC GLUC 125 MG in IV NS 0.9% 100 ML IV SCH (13:45)
[2018-10-14] MEDS: BUMETANIDE (1 MG) 1 MG TABLET PO SCH ×2 (14:09→17:25)
--- NOTE | 2018-10-14 14:22 | NUR ---
MS RN NOTES PT GOING TO EGD; OR NURSES ACCOMPANYING.
[2018-10-14] MEDS ORDERED: ETOMIDATE 2 MG/ML VIAL ONE (15:03)
[2018-10-14 16:00] VITALS: BP 119/59
--- NOTE | 2018-10-14 19:14 | NUR ---
MS RN CLOSING NOTES REPORT GIVEN TO PM NURSE FOR ALMA DELIA. BED IN LOCKED/LOWEST POSITION. WOUND CARE DONE. CALL LIGHT IN REACH. ALL NEEDS ATTENDED TO.
[2018-10-14 20:00] VITALS: BP 111/54
[2018-10-14] MEDS: ATORVASTATIN 40 MG TABLET PO SCH (21:30)
[2018-10-14] MEDS: *INSULIN REGULAR(HUMULIN R)HUM 100 UNIT/ML VIAL SQ PRN (21:34)
[2018-10-14 22:34] VITALS: BP 111/54
[2018-10-15] MEDS: ALBUTEROL FS 2.5 MG/3 ML VIAL.NEB NEB SCH ×4 (01:30→19:37)
[2018-10-15 04:00] VITALS: BP 109/48
[2018-10-15 08:00] VITALS: BP 126/58
[2018-10-15] MEDS: ACETYLCYSTEINE 10% SOLN 400 MG/4 ML VIAL NEB SCH ×3 (08:02→23:30)
--- NOTE | 2018-10-15 08:30 | NUR ---
RN OPENING NOTE PT IN ROOM RESTING. A/OX4, NO S/S OF RESP DISTRESS, NO C/O PAIN AT THIS TIME. PER MD ORDER, PT WILL REQUIRE HD. HD ACCESS TO BE PLACED BY MD SHERRY VILLEGAS TODAY. CONSENT FORM SIGNED AND PLACED IN CHART. AWAITING MD VILLEGAS FOR HD CATH ACCESS PLACEMENT. SAFETY MEASURES IN PLACE, CALL LIGHT WITHIN REACH. WILL CONTINUE TO MONITOR.
[2018-10-15] MEDS: BLOOD SUGAR DIAGNOSTIC 1 EACH STRIP VI SCH ×4 (08:40→21:17)
[2018-10-15] MEDS: MULTIPLE VIT (LYCOPENE/FA/MV,CA,IRON,MIN/LUT)1 TAB PO SCH (08:41)
[2018-10-15] MEDS: THIAMINE HCL 100 MG TABLET PO SCH (08:41)
[2018-10-15] MEDS: METOLAZONE 2.5 MG TABLET PO SCH (08:41)
[2018-10-15] MEDS: ASCORBIC ACID 500 MG TABLET PO SCH (08:42)
[2018-10-15] MEDS: FOLIC ACID 1 MG TABLET PO SCH (08:42)
[2018-10-15] MEDS: LEVOTHYROXINE SODIUM 75 MCG TABLET PO SCH (08:42)
[2018-10-15] MEDS: ZINC SULFATE 220 MG CAPSULE PO SCH (08:42)
[2018-10-15] MEDS: CHOLECALCIFEROL 1,000 UNIT TABLET (VIT D3) PO SCH (08:42)
[2018-10-15] MEDS: FENOFIBRATE NANOCRYS (145 MG) 145 MG TABLET PO SCH (08:42)
[2018-10-15] MEDS: AMLODIPINE BESYLATE 5 MG TABLET PO SCH (08:45)
[2018-10-15] MEDS: *INSULIN REGULAR(HUMULIN R)HUM 100 UNIT/ML VIAL SQ PRN ×3 (08:53→21:20)
[2018-10-15] MEDS: CARVEDILOL 12.5 MG TABLET PO SCH ×2 (09:00→21:00)
[2018-10-15] MEDS: BUMETANIDE (1 MG) 1 MG TABLET PO SCH ×2 (09:00→17:46)
[2018-10-15 09:46] LABS: BASOPHILS % (AUTO) 0.7 % (0.0-2.0); EOSINOPHILS % (AUTO) 11.6 % (0.0-6.0); HEMATOCRIT 31 % (39-51); HEMOGLOBIN 10.4 g/dL (13.5-17.5); LYMPHOCYTES # (AUTO) 0.4 /CMM (0.8-4.8); LYMPHOCYTES % (AUTO) 8.4 % (20.0-44.0); MEAN CORPUSCULAR HGB CONC 33 g/dl (31.0-36.0); MEAN CORPUSCULAR VOLUME 94 fL (80-96); MONOCYTES # (AUTO) 0.4 /CMM (0.1-1.30); MONOCYTES % (AUTO) 8.3 % (2.0-12.0); NEUTROPHILS # (AUTO) 3.6 /CMM (1.8-8.9); PLATELET COUNT (AUTO) 242 /CMM (150-450); RED BLOOD CELL COUNT(AUTO) 3.35 MIL/uL (4.5-6.0)
[2018-10-15 09:59] LABS: CALCIUM, SERUM 8.5 mg/dL (8.5-10.1); CREATININE 2.3 mg/dL (0.6-1.3); MAGNESIUM 3.8 mg/dL (1.8-2.4); PHOSPHORUS 5.3 mg/dL (2.5-4.9); POTASSIUM 3.8 mmol/L (3.5-5.1)
[2018-10-15 12:00] VITALS: BP 126/58
[2018-10-15 12:11] LABS: *SPE A/G RATIO 0.9 (0.7-1.7); *SPE ALBUMIN 3.1 g/dL (2.9-4.4); *SPE ALPHA-1-GLOBULIN 0.3 g/dL (0.0-0.4); *SPE ALPHA-2-GLOBULIN 0.7 g/dL (0.4-1.0); *SPE BETA GLOBULIN 0.9 g/dL (0.7-1.3); *SPE GLOBULIN, TOTAL 3.5 g/dL (2.2-3.9); *SPE M-SPIKE Not Observed g/dL (Not Observed); *SPEGAMMA GLOBULIN 1.6 g/dL (0.4-1.8)
[2018-10-15 14:15] LABS: PTH, INTACT 43 pg/mL (15-65)
[2018-10-15] MEDS: SOD FERRIC GLUC 125 MG in IV NS 0.9% 100 ML IV SCH (15:55)
[2018-10-15 16:00] VITALS: BP 125/63
[2018-10-15] MEDS: LACTULOSE 10 G/15 ML UDC (PYXIS) PO SCH (17:47)
--- NOTE | 2018-10-15 18:22 | NUR ---
RN CLOSING NOTE PT IN BED RESTING. NO S/S OF RESP DISTRESS/SOB. PT IS STILL AWAITING INSERTION OF HD ACCESS. MD NOTIFIED, MATERIALS AT BED SIDE. ALL PT NEEDS ANTICIPATED AND MET. SAFETY MEASURES IN PLACE, CALL LIGHT WITHIN REACH. WILL ENDORSE TO JEWEL STRINGER FOR ALMA DELIA.
[2018-10-15 20:00] VITALS: BP 127/59
--- NOTE | 2018-10-15 20:00 | NUR ---
MS RN NOTES RECEIVED PT ON BED. A/O X4. ON ROOM AIR SATURATING WELL. IV ACCESS RFA G20 SALINE LOCK, PATENT AND INTACT. HEAD OF BED ELEVATED. SIDE RAILS UP. CALL LIGHT WITHIN REACH. BED ALARM ON. WILL CONTINUE TO MONITOR PT CLOSELY.
[2018-10-15] MEDS: ATORVASTATIN 40 MG TABLET PO SCH (21:13)
[2018-10-16] MEDS: ALBUTEROL FS 2.5 MG/3 ML VIAL.NEB NEB SCH ×4 (01:30→20:14)
--- NOTE | 2018-10-16 01:46 | NUR ---
MS RN NOTES PT REFUSING WOUND CARE. EXPLAINED BENEFITS OF IT. PER PT HE WANTS TO REST.
[2018-10-16 04:00] VITALS: BP 120/55
[2018-10-16 06:04] LABS: BASOPHILS % (AUTO) 0.9 % (0.0-2.0); EOSINOPHILS % (AUTO) 14.9 % (0.0-6.0); HEMATOCRIT 30 % (39-51); HEMOGLOBIN 10.2 g/dL (13.5-17.5); LYMPHOCYTES # (AUTO) 0.5 /CMM (0.8-4.8); LYMPHOCYTES % (AUTO) 9.1 % (20.0-44.0); MEAN CORPUSCULAR HGB CONC 34 g/dl (31.0-36.0); MEAN CORPUSCULAR VOLUME 94 fL (80-96); MONOCYTES # (AUTO) 0.5 /CMM (0.1-1.30); MONOCYTES % (AUTO) 10.5 % (2.0-12.0); NEUTROPHILS # (AUTO) 3.2 /CMM (1.8-8.9); NEUTROPHILS % (AUTO) 64.6 % (43.0-81.0); PLATELET COUNT (AUTO) 231 /CMM (150-450); RED BLOOD CELL COUNT(AUTO) 3.23 MIL/uL (4.5-6.0); WHITE BLOOD COUNT (AUTO) 4.9 K/uL (4.3-11.0)
[2018-10-16 06:22] LABS: ALBUMIN 2.9 g/dL (3.4-5.0); BILIRUBIN,TOTAL 0.4 mg/dL (0.2-1.0); CALCIUM, SERUM 8.3 mg/dL (8.5-10.1); CREATININE 2.2 mg/dL (0.6-1.3); MAGNESIUM 3.6 mg/dL (1.8-2.4); PHOSPHORUS 4.9 mg/dL (2.5-4.9); POTASSIUM 3.8 mmol/L (3.5-5.1); TOTAL PROTEIN, SERUM 6.8 g/dL (6.4-8.2)
--- NOTE | 2018-10-16 06:46 | NUR ---
MS RN NOTES NO ACUTE CHANGES NOTED DURING THE SHIFT. PROVIDED COMFORT AND SAFETY. DUE MEDS GIVEN. WILL ENDORSE TO THE AM NURSE FOR CONTINUITY OF CARE.
--- NOTE | 2018-10-16 07:17 | NUR ---
MS/RN Patient received Patient received from manager night, sleeping soundly at this time, appears in no distress. Call light within reach, safety measures in place. Will continue to monitor and ensure safety.
[2018-10-16] MEDS: BLOOD SUGAR DIAGNOSTIC 1 EACH STRIP VI SCH ×3 (07:30→16:36)
[2018-10-16] MEDS: ACETYLCYSTEINE 10% SOLN 400 MG/4 ML VIAL NEB SCH ×3 (07:37→23:10)
[2018-10-16 08:00] VITALS: BP 116/48
[2018-10-16] MEDS: ZINC SULFATE 220 MG CAPSULE PO SCH (08:26)
[2018-10-16] MEDS: CHOLECALCIFEROL 1,000 UNIT TABLET (VIT D3) PO SCH (08:26)
[2018-10-16] MEDS: FOLIC ACID 1 MG TABLET PO SCH (08:26)
[2018-10-16] MEDS: METOLAZONE 2.5 MG TABLET PO SCH (08:26)
[2018-10-16] MEDS: LACTULOSE 10 G/15 ML UDC (PYXIS) PO SCH ×2 (08:26→16:36)
[2018-10-16] MEDS: FENOFIBRATE NANOCRYS (145 MG) 145 MG TABLET PO SCH (08:26)
[2018-10-16] MEDS: LEVOTHYROXINE SODIUM 75 MCG TABLET PO SCH (08:26)
[2018-10-16] MEDS: MULTIPLE VIT (LYCOPENE/FA/MV,CA,IRON,MIN/LUT)1 TAB PO SCH (08:26)
[2018-10-16] MEDS: ASCORBIC ACID 500 MG TABLET PO SCH (08:27)
[2018-10-16] MEDS: THIAMINE HCL 100 MG TABLET PO SCH (08:27)
[2018-10-16] MEDS: HYDROCODONE/APAP 5/325MG 1 EACH TABLET PO PRN ×2 (08:27→16:36)
[2018-10-16] MEDS: BUMETANIDE (1 MG) 1 MG TABLET PO SCH ×2 (08:27→16:36)
[2018-10-16] MEDS: AMLODIPINE BESYLATE 5 MG TABLET PO SCH (08:29)
[2018-10-16] MEDS: CARVEDILOL 12.5 MG TABLET PO SCH ×2 (08:29→21:21)
--- NOTE | 2018-10-16 08:30 | NUR ---
MS/RN S/B Dr Chan Seen by Dr Chan - repeat lexiscan when patient is in a position to have cardiac catheter if lexiscan is abnormal.
--- NOTE | 2018-10-16 09:00 | NUR ---
MS/RN S/B Dr Amanda Seen by Dr Amanda - labs ordered for tomorrow.
--- NOTE | 2018-10-16 10:37 | NUR ---
MS/RN S/B Dr Severino Seen by Dr Severino - pulmonary function test to be arranged as outpatient, otherwise respiratory anne stable.
--- NOTE | 2018-10-16 13:00 | NUR ---
MS/RN HD catheter placed HD catheter placed by Dr Flores.
[2018-10-16] MEDS: SOD FERRIC GLUC 125 MG in IV NS 0.9% 100 ML IV SCH (14:40)
[2018-10-16 16:00] VITALS: BP 115/65
--- NOTE | 2018-10-16 17:56 | NUR ---
MS/RN Blood sugar Blood sugar at 5p - 164, patient refused any coverage as not wanting to eat.
[2018-10-16] MEDS: diphenhydrAMINE HCL 50 MG/ML VIAL IV PRN (19:41)
[2018-10-16 20:00] VITALS: BP 112/65
--- NOTE | 2018-10-16 20:10 | NUR ---
EVANGELIST/SCENIC ARTIST PT COMPLAINED ABOUT ITCHING, BENADRYL GIVEN FOR THIS BY CHARGE NURSE WHO WAS NOTIFIED ABOUT THE ITCHING. WILL CONTINUE TO MONITOR THIS PT.
--- NOTE | 2018-10-16 21:10 | NUR ---
EVANGELIST/POCKET SECRETARY ASSEMBLER HD IS HERE AND FIRST DIALYSIS WAS STARTED. WILL CLOSELY MONITOR THIS PT.
[2018-10-16] MEDS: ATORVASTATIN 40 MG TABLET PO SCH (21:20)
--- NOTE | 2018-10-16 23:50 | NUR ---
EVANGELIST/DECK CADET HD WAS DONE, 2 LITERS WERE TAKEN OFF. PT REMAINS STABLE, BLOOD PRESSURE IS STABLE PT DENIES AND PAIN. PT DID SAY HE WAS TIRED.
[2018-10-17] VITALS: BP 131/66
[2018-10-17] MEDS: BLOOD SUGAR DIAGNOSTIC 1 EACH STRIP VI SCH ×5 (00:10→21:36)
[2018-10-17] MEDS: INSULIN REGULAR, HUMAN 100 UNIT/ML 3 ML VIAL SQ PRN ×3 (00:11→18:32)
[2018-10-17] MEDS: ALBUTEROL FS 2.5 MG/3 ML VIAL.NEB NEB SCH ×4 (01:30→20:01)
--- NOTE | 2018-10-17 02:10 | NUR ---
EVANGELIST/CLINICAL ENGINEER PT REFUSED ANY AM CARE. PT SAID HE WOULD LIKE TO SLEEP. WILL CONTINUE TO MONITOR THIS PT.
[2018-10-17 04:00] VITALS: BP 118/67
--- NOTE | 2018-10-17 04:45 | NUR ---
EVANGELIST/CIRCULATION LIBRARIAN AM LABS DRAWN, WAIT FOR ANY ABNORMAL RESULTS.
[2018-10-17] MEDS: *INSULIN REGULAR(HUMULIN R)HUM 100 UNIT/ML VIAL SQ PRN (06:43)
[2018-10-17] MEDS: LEVOTHYROXINE SODIUM 75 MCG TABLET PO SCH (06:47)
--- NOTE | 2018-10-17 07:00 | NUR ---
MS RN OPENING NOTES RECEIVED PT ON BED.ALERT/ORIENTED X4.ON ROOM AIR TOLERATING WELL.NO SOB AND ACUTE DISTRESS NOTED.IGHT IJ HD CATHETER IS PRE AND IV LINE IS ON RIGHT FA G20,SITE IS CLEAN,DRY AND INTACT.NO INFILTRATION NOTED.SAFETY IS MAINTAINED AT ALL TIMES.BED IS IN LOW POSITION AND LOCKED.CALL LIGHT IS WITHIN REACH.WILL CONTINUE TO MONITOR THE PT CLOSELY.
[2018-10-17] MEDS: ACETYLCYSTEINE 10% SOLN 400 MG/4 ML VIAL NEB SCH ×3 (07:35→23:22)
[2018-10-17 08:00] VITALS: BP 125/83
[2018-10-17] MEDS: CHOLECALCIFEROL 1,000 UNIT TABLET (VIT D3) PO SCH (08:57)
[2018-10-17] MEDS: FENOFIBRATE NANOCRYS (145 MG) 145 MG TABLET PO SCH (08:57)
[2018-10-17] MEDS: FOLIC ACID 1 MG TABLET PO SCH (08:58)
[2018-10-17] MEDS: ASCORBIC ACID 500 MG TABLET PO SCH (08:58)
[2018-10-17] MEDS: THIAMINE HCL 100 MG TABLET PO SCH (08:58)
[2018-10-17] MEDS: BUMETANIDE (1 MG) 1 MG TABLET PO SCH ×2 (08:58→18:33)
[2018-10-17] MEDS: MULTIPLE VIT (LYCOPENE/FA/MV,CA,IRON,MIN/LUT)1 TAB PO SCH (08:58)
[2018-10-17] MEDS: ZINC SULFATE 220 MG CAPSULE PO SCH (08:59)
[2018-10-17] MEDS: METOLAZONE 2.5 MG TABLET PO SCH (08:59)
[2018-10-17] MEDS: CARVEDILOL 12.5 MG TABLET PO SCH ×2 (09:00→21:26)
[2018-10-17] MEDS: LACTULOSE 10 G/15 ML UDC (PYXIS) PO SCH ×3 (09:00→18:33)
[2018-10-17] MEDS: AMLODIPINE BESYLATE 5 MG TABLET PO SCH (09:00)
[2018-10-17 16:00] VITALS: BP 111/58
[2018-10-17] MEDS: SPIRONOLACTONE 25 MG TABLET PO SCH (18:33)
[2018-10-17] MEDS: HYDROCODONE/APAP 5/325MG 1 EACH TABLET PO PRN (18:40)
--- NOTE | 2018-10-17 19:15 | NUR ---
MEDSURG RN NOTE PATIENT RESTING IN BED IN STABLE CONDITION, ABLE TO MAKE NEEDS [id number]. ON ROOM AIR, DENIES SHORTNESS OF BREATH. MEDICATION GIVEN FOR PAIN. IV SITE ON RIGHT FOREARM INTACT SALINE LOCK. DIALYSIS CATHETER INTACT ON RIGHT IJ. 1.5L REMOVED TODAY DURING DIALYSIS. PATIENT SIGNED CONSENT FOR BLOOD TRANSFUSION AND PERMACATH PLACEMENT. CONSENTS IN CHART. ENDORSED TO DUMP GRADER NURSE THAT PATIENT NEEDS TO BE NPO AFTER MIDNIGHT. SIDE RAILS UP, CALL LIGHT WITHIN REACH, BED IN LOW LOCKED POSITION, ENDORSED TO DUMP GRADER FOR CONTINUITY OF CARE.
[2018-10-17 20:00] VITALS: BP 107/58
--- NOTE | 2018-10-17 21:03 | NUR ---
1900 Received patient stable,awake,alert,converses,coherent and appropriate,not in any distress,denies any pain,denies any shortness of breath.For Perma cath insertion in am.Patient instructed to be NPO post midnight. 2100 lower extremities dressings changed by ROSELINE Booth.
[2018-10-17] MEDS: ATORVASTATIN 40 MG TABLET PO SCH (21:28)
[2018-10-17] MEDS: diphenhydrAMINE HCL 50 MG/ML VIAL IV PRN (23:03)
--- NOTE | 2018-10-18 | NUR ---
Remains stable,awake,alert,instructed not to eat or drink anything starting now.For Permav=cath insertion in am.
[2018-10-18] MEDS: ALBUTEROL FS 2.5 MG/3 ML VIAL.NEB NEB SCH ×4 (02:00→19:33)
[2018-10-18 04:00] VITALS: BP 117/58
--- NOTE | 2018-10-18 04:00 | NUR ---
Remains stable,walking around the room with stable gait and balance
--- NOTE | 2018-10-18 07:00 | NUR ---
MS RN OPENING NOTES RECEIVED PT ON BED.ALERT/ORIENTED X4.ON ROOM AIR,SATURATING WELL.NO SOB AND ACUTE DISTRESS NOTED.ON NPO FOR HD CATHETER REPLACEMENT TODAY.IV LINE IS ON RIGHT HAND IS PRESENT,SITE IS CLEAN,DRY AND INTACT.SAFETY IS MAINTAINED AT ALL TIMES.BED IS IN LOW POSITION AND LOCKED.CALL LIGHT IS WITHIN REACH.WILL CONTINUE TO MONITOR THE PT CLOSELY..
--- NOTE | 2018-10-18 07:00 | NUR ---
remains stable,report given to Kelin RN
[2018-10-18] MEDS: ACETYLCYSTEINE 10% SOLN 400 MG/4 ML VIAL NEB SCH ×3 (07:18→23:06)
[2018-10-18 08:00] VITALS: BP 116/55
[2018-10-18] MEDS: BLOOD SUGAR DIAGNOSTIC 1 EACH STRIP VI SCH ×4 (08:05→21:12)
[2018-10-18] MEDS: FENOFIBRATE NANOCRYS (145 MG) 145 MG TABLET PO SCH (08:06)
[2018-10-18] MEDS: MULTIPLE VIT (LYCOPENE/FA/MV,CA,IRON,MIN/LUT)1 TAB PO SCH (08:06)
[2018-10-18] MEDS: LEVOTHYROXINE SODIUM 75 MCG TABLET PO SCH (08:06)
[2018-10-18] MEDS: FOLIC ACID 1 MG TABLET PO SCH (08:06)
[2018-10-18] MEDS: CHOLECALCIFEROL 1,000 UNIT TABLET (VIT D3) PO SCH (08:06)
[2018-10-18] MEDS: ZINC SULFATE 220 MG CAPSULE PO SCH (08:06)
[2018-10-18] MEDS: THIAMINE HCL 100 MG TABLET PO SCH (08:06)
[2018-10-18] MEDS: ASCORBIC ACID 500 MG TABLET PO SCH (08:06)
[2018-10-18] MEDS: BUMETANIDE (1 MG) 1 MG TABLET PO SCH ×2 (08:06→17:10)
[2018-10-18] MEDS: SPIRONOLACTONE 25 MG TABLET PO SCH (08:07)
[2018-10-18] MEDS: CARVEDILOL 12.5 MG TABLET PO SCH ×2 (08:07→20:42)
[2018-10-18] MEDS: LACTULOSE 10 G/15 ML UDC (PYXIS) PO SCH ×2 (08:07→17:00)
[2018-10-18] MEDS: AMLODIPINE BESYLATE 5 MG TABLET PO SCH (08:08)
[2018-10-18] MEDS: METOLAZONE 2.5 MG TABLET PO SCH (08:09)
[2018-10-18 08:32] LABS: BASOPHILS # (AUTO) 0.1 /CMM (0.0-0.2); BASOPHILS % (AUTO) 1.2 % (0.0-2.0); EOSINOPHILS % (AUTO) 16.7 % (0.0-6.0); HEMATOCRIT 28 % (39-51); HEMOGLOBIN 9.4 g/dL (13.5-17.5); LYMPHOCYTES # (AUTO) 0.7 /CMM (0.8-4.8); LYMPHOCYTES % (AUTO) 16.1 % (20.0-44.0); MEAN CORPUSCULAR HGB CONC 33 g/dl (31.0-36.0); MEAN CORPUSCULAR VOLUME 94 fL (80-96); MONOCYTES # (AUTO) 0.5 /CMM (0.1-1.30); MONOCYTES % (AUTO) 10.5 % (2.0-12.0); NEUTROPHILS # (AUTO) 2.4 /CMM (1.8-8.9); NEUTROPHILS % (AUTO) 55.5 % (43.0-81.0); PLATELET COUNT (AUTO) 122 /CMM (150-450); RED BLOOD CELL COUNT(AUTO) 2.97 MIL/uL (4.5-6.0); WHITE BLOOD COUNT (AUTO) 4.3 K/uL (4.3-11.0)
[2018-10-18 09:07] LABS: CREATININE 1.8 mg/dL (0.6-1.3); MAGNESIUM 2.7 mg/dL (1.8-2.4); PHOSPHORUS 3.1 mg/dL (2.5-4.9)
[2018-10-18 11:09] LABS: HEPATITIS Be AB Negative (Negative)
--- NOTE | 2018-10-18 14:00 | NUR ---
MS RN NOTES PT PICKED UP TO OR TO DO HD CATH REPLACEMENT.ALL THE CONSENTS HAS SIGNED AND CHECKLIST HAS COMPETED.VITAL SIGNS ARE CHECKED AND RECORDED.RESPIRATIONS ARE WNL AND UNLABORED.NO SOB AND ACUTE DISTRESS NOTED.SURGICAL SITE IS CLEAN AND DRY.IV LINE IS ON RIGHT HAND.NO COMPLICATIONS NOTED.
[2018-10-18] MEDS ORDERED: LIDOCAINE HCL/PF 1% 30 ML SDV ONE (14:03)
[2018-10-18] MEDS ORDERED: HEPARIN SODIUM, PORCINE 1,000 UNIT/ML VIAL ONE (14:03)
[2018-10-18] MEDS ORDERED: FENTANYL PF 100MCG/2ML AMPUL ONE ×2 (14:26→15:16)
[2018-10-18 15:50] VITALS: BP 132/67
--- NOTE | 2018-10-18 15:50 | NUR ---
MS RN NOTES PT CAME BACK FROM OR S/P HD CATH REPLACEMENT ON RIGHT UPPER CHEST IJ.PT IS ALERT/ORIENTED X4.VITAL SIGNS CHECKED AND RECORDED.T-97.8.P-53,R-18,BP-132/67,O2-99%.TOLERATING WELL ON ROOM AIR.NO COMPLICATIONS NOTED.SURGICAL SITE IS CLEAN,DRY AND WELL DRESSED.
[2018-10-18 16:00] VITALS: BP 114/56
--- NOTE | 2018-10-18 16:00 | NUR ---
MS RN NOTES ORDERED US GUIDED PARACENTESIS.PT MADE CONSENT. IS DOING NOW.NO COMPLICATIONS NOTED.VITAL SIGNS ARE WNL.
[2018-10-18] MEDS: HYDROCODONE/APAP 5/325MG 1 EACH TABLET PO PRN (16:01)
--- NOTE | 2018-10-18 16:20 | NUR ---
MS RN NOTES PT HAS DONE US GUIDED PARACENTESIS.4 YCPD=[id number] FLUID IS OUT.VITAL SIGNS ARE CHECKED AND IT IS WNL.NO COMPLICATIONS NOTED.RESPIRATION IS WNL AND NONLABORED.
--- NOTE | 2018-10-18 17:30 | NUR ---
MS RN NOTES PAMELA MCLEAN MADE AWARE ABOUT THE S/P PARACENTESIS AND DOESN'T WANT TO DO ANY TEST ON IT.CHARGE NURSE MADE AWARE.NEW ORDERS NOTED AND CARRIED OUT.
--- NOTE | 2018-10-18 18:35 | NUR ---
MS RN NOTES OFFERED TO DO WOUND TREATMENT ON BLE X3,PT STILL REFUSED.EXPLAINED THE RISK X3,STILL REFUSED.
--- NOTE | 2018-10-18 18:42 | NUR ---
MS RN CLOSING NOTES PT IS ON BED.S/P PARACENTESIS AND S/P HD CATH REPLACEMENT.WOUND TREATMENT IS REFUSED.VITAL SIGNS ARE STABLE AND NO COMPLICATIONS NOTED.ENDORSED TO DIESEL TECHNICIAN MECHANIC RN FOR CONTINUITY OF CARE.
[2018-10-18 20:00] VITALS: BP 127/55
--- NOTE | 2018-10-18 20:08 | NUR ---
RN INITIAL MS NOTES RECEIVED PT ON BED.ALERT/ORIENTED X4.ON ROOM AIR,SATURATING WELL.NO SOB AND ACUTE DISTRESS NOTED.ON RENAL, FOR HD CATHETER REPLACEMENT TODAY.IV LINE IS ON RIGHT HAND IS PRESENT,SITE IS CLEAN,DRY AND INTACT.SAFETY IS MAINTAINED AT ALL TIMES.BED IS IN LOW POSITION AND LOCKED.CALL LIGHT IS WITHIN REACH.WILL CONTINUE TO MONITOR THE PT CLOSELY..
[2018-10-18] MEDS: diphenhydrAMINE HCL 50 MG/ML VIAL IV PRN (20:43)
[2018-10-18] MEDS: *INSULIN REGULAR(HUMULIN R)HUM 100 UNIT/ML VIAL SQ PRN ×2 (21:04→21:10)
[2018-10-18] MEDS: ATORVASTATIN 40 MG TABLET PO SCH (21:05)
[2018-10-19 00:16] VITALS: BP 127/55
[2018-10-19] MEDS: ALBUTEROL FS 2.5 MG/3 ML VIAL.NEB NEB SCH ×4 (01:29→19:46)
[2018-10-19 04:00] VITALS: BP 117/77
--- NOTE | 2018-10-19 06:08 | NUR ---
RN CLOSING MS NOTES ENDORSED PT ON BED.ALERT/ORIENTED X4.ON ROOM AIR,SATURATING WELL.NO SOB AND ACUTE DISTRESS NOTED.ON RENAL, FOR HD CATHETER REPLACEMENT TODAY.IV LINE IS ON RIGHT HAND IS PRESENT,SITE IS CLEAN,DRY AND INTACT.SAFETY IS MAINTAINED AT ALL TIMES.BED IS IN LOW POSITION AND LOCKED.CALL LIGHT IS WITHIN REACH.WILL CONTINUE TO MONITOR THE PT CLOSELY..
--- NOTE | 2018-10-19 07:15 | NUR ---
MS RN OPENING NOTES RECEIVED PT ON BED.REPORT RECEIVED FROM PM NURSE.PATIENT IS ALERT/ORIENTED X4.ON ROOM AIR,SATURATING WELL.NO SOB AND ACUTE DISTRESS NOTED.ON RENAL DIET.S/P HD CATHETER PLACEMENT .IV LINE IS ON RIGHT HAND IS PRESENT,SITE IS CLEAN,DRY AND INTACT.SAFETY IS MAINTAINED AT ALL TIMES.BED IS IN LOW POSITION AND LOCKED.CALL LIGHT IS WITHIN REACH.SRX2.WILL CONTINUE TO MONITOR .
[2018-10-19] MEDS: ACETYLCYSTEINE 10% SOLN 400 MG/4 ML VIAL NEB SCH ×3 (07:44→23:30)
[2018-10-19] MEDS: LEVOTHYROXINE SODIUM 75 MCG TABLET PO SCH (07:46)
[2018-10-19] MEDS: BLOOD SUGAR DIAGNOSTIC 1 EACH STRIP VI SCH ×4 (07:47→21:36)
[2018-10-19] MEDS: INSULIN REGULAR, HUMAN 100 UNIT/ML 3 ML VIAL SQ PRN ×2 (07:52→12:44)
[2018-10-19 08:00] VITALS: BP 118/55
[2018-10-19 08:06] LABS: BASOPHILS # (AUTO) 0.1 /CMM (0.0-0.2); BASOPHILS % (AUTO) 1.1 % (0.0-2.0); EOSINOPHILS % (AUTO) 17.4 % (0.0-6.0); HEMATOCRIT 29 % (39-51); LYMPHOCYTES # (AUTO) 0.6 /CMM (0.8-4.8); MEAN CORPUSCULAR HGB CONC 34 g/dl (31.0-36.0); MEAN CORPUSCULAR VOLUME 93 fL (80-96); MONOCYTES # (AUTO) 0.5 /CMM (0.1-1.30); MONOCYTES % (AUTO) 7.8 % (2.0-12.0); NEUTROPHILS # (AUTO) 3.9 /CMM (1.8-8.9); NEUTROPHILS % (AUTO) 63.7 % (43.0-81.0); PLATELET COUNT (AUTO) 128 /CMM (150-450); RED BLOOD CELL COUNT(AUTO) 3.17 MIL/uL (4.5-6.0); WHITE BLOOD COUNT (AUTO) 6.2 K/uL (4.3-11.0)
[2018-10-19 08:09] LABS: CALCIUM, SERUM 8.3 mg/dL (8.5-10.1); CREATININE 1.8 mg/dL (0.6-1.3); MAGNESIUM 2.6 mg/dL (1.8-2.4); PHOSPHORUS 3.4 mg/dL (2.5-4.9); POTASSIUM 4.5 mmol/L (3.5-5.1)
[2018-10-19] MEDS: LACTULOSE 10 G/15 ML UDC (PYXIS) PO SCH ×3 (08:49→16:54)
[2018-10-19] MEDS: METOLAZONE 2.5 MG TABLET PO SCH (08:50)
[2018-10-19] MEDS: THIAMINE HCL 100 MG TABLET PO SCH (08:50)
[2018-10-19] MEDS: FOLIC ACID 1 MG TABLET PO SCH (08:50)
[2018-10-19] MEDS: HYDROCODONE/APAP 5/325MG 1 EACH TABLET PO PRN (08:50)
[2018-10-19] MEDS: MULTIPLE VIT (LYCOPENE/FA/MV,CA,IRON,MIN/LUT)1 TAB PO SCH (08:50)
[2018-10-19] MEDS: SPIRONOLACTONE 25 MG TABLET PO SCH (08:50)
[2018-10-19] MEDS: FENOFIBRATE NANOCRYS (145 MG) 145 MG TABLET PO SCH (08:50)
[2018-10-19] MEDS: CHOLECALCIFEROL 1,000 UNIT TABLET (VIT D3) PO SCH (08:50)
[2018-10-19] MEDS: BUMETANIDE (1 MG) 1 MG TABLET PO SCH ×2 (08:51→16:54)
[2018-10-19] MEDS: ASCORBIC ACID 500 MG TABLET PO SCH (08:51)
[2018-10-19] MEDS: ZINC SULFATE 220 MG CAPSULE PO SCH (08:51)
[2018-10-19] MEDS: AMLODIPINE BESYLATE 5 MG TABLET PO SCH (08:51)
--- NOTE | 2018-10-19 09:07 | NUR ---
MS RN NOTE SEEN BY .UPDATED ABOUT PATIENT CONDITION.NNO.WAITING FOR NEPHROLOGY AND POSSIBLE HD TODAY.WILL CONTINUE TO MONITOR.
[2018-10-19] MEDS: CARVEDILOL 12.5 MG TABLET PO SCH ×2 (10:03→23:00)
--- NOTE | 2018-10-19 12:10 | NUR ---
MS RN NOTE SEEN BY MADE AWARE ABOUT PATIENT CONDITION AND INFORMED PATIENT REFUSED LACTULOSE AND REQUESTED SERUM AMMONIA LEVEL.GOT NEW ORDERS.WILL BE HAVING DIALYSIS TODAY.
[2018-10-19 16:00] VITALS: BP 122/48
--- NOTE | 2018-10-19 17:00 | NUR ---
RN NOTE PATIENT REFUSED WOUND DRESSING ,EDUCATED RISK AND BENEFIT STILL REFUSING
--- NOTE | 2018-10-19 19:00 | NUR ---
RN NOTES PATIENT ENDORSED TO NEXT SHIFT IN STABLE CONDITION FOR CONTINUITY OF CARE. NO SIGNIFICANT CHANGES NOTED. KEPT CLEAN, DRY AND COMFORTABLE. ALL NEEDS ATTENDED. SAFETY MEASURE OBSERVED. CALL LIGHT WITH IN REACH. WILL CONT TO MONITOR.
--- NOTE | 2018-10-19 19:11 | NUR ---
MS RN NOTES RECEIVE PT IN BED A/O X 3 -4, NO PAIN AT THIS TIME. IN STABLE CONDITION, NOT IN DISTRESS, SAFETY MEASURES IN PLACE. WILL CONTINUE TO MONITOR.
[2018-10-19 20:00] VITALS: BP 118/52
[2018-10-19] MEDS: *INSULIN REGULAR(HUMULIN R)HUM 100 UNIT/ML VIAL SQ PRN (21:37)
[2018-10-19] MEDS: ATORVASTATIN 40 MG TABLET PO SCH (23:01)
[2018-10-20] MEDS: ALBUTEROL FS 2.5 MG/3 ML VIAL.NEB NEB SCH ×3 (01:30→13:30)
[2018-10-20 04:00] VITALS: BP 110/72
[2018-10-20] MEDS: diphenhydrAMINE HCL 50 MG/ML VIAL IV PRN (05:32)
--- NOTE | 2018-10-20 06:09 | NUR ---
MS RN CLOSING NOTES REMAINS STABLE. NO COMPLAIN OF PAIN, S/P PERMACATH INSERTION INTACT DRESSING. WITH NO S/S OF BLEEDING NOTED. S/P HEMODIALYSIS 10/18 2L OUT,. NOT IN DISTRESS.. TOLERATING ROOM AIR 99%. ALL NURSING CARE RENDERED. KEPT CLEAN AND DRY AND COMFORTABLE, NEEDS ATTENDED AND ANTICIPATED. GOOD SKIN CARE PROVIDED, ON LOW BED AT ALL TIMES TO ENSURE SAFETY. SAFE HAZARD FREE ENVIRONMENT PROVIDED. CALL LIGHT WITHIN EASY TO REACH. WILL ENDORSE NEXT SHIFT CONTINUITY OF CARE
[2018-10-20] MEDS: BLOOD SUGAR DIAGNOSTIC 1 EACH STRIP VI SCH ×2 (07:30→12:00)
--- NOTE | 2018-10-20 07:30 | NUR ---
PT RECEIVED RESTING COMFORTABLY IN BED. NO S/S OR C/O PAIN OR DISTRESS NOTED. SIDE RAILS UP X2, CALL LIGHT LEFT WITHIN REACH. WILL CONTINUE PLAN OF CARE.
[2018-10-20 08:00] VITALS: BP 127/64
[2018-10-20] MEDS: ACETYLCYSTEINE 10% SOLN 400 MG/4 ML VIAL NEB SCH ×2 (08:15→13:56)
[2018-10-20 08:23] LABS: BASOPHILS % (AUTO) 1.1 % (0.0-2.0); EOSINOPHILS % (AUTO) 8.1 % (0.0-6.0); HEMATOCRIT 29 % (39-51); HEMOGLOBIN 9.7 g/dL (13.5-17.5); LYMPHOCYTES # (AUTO) 0.6 /CMM (0.8-4.8); LYMPHOCYTES % (AUTO) 15.9 % (20.0-44.0); MEAN CORPUSCULAR HGB CONC 33 g/dl (31.0-36.0); MEAN CORPUSCULAR VOLUME 93 fL (80-96); MONOCYTES # (AUTO) 0.3 /CMM (0.1-1.30); MONOCYTES % (AUTO) 9.3 % (2.0-12.0); NEUTROPHILS # (AUTO) 2.5 /CMM (1.8-8.9); NEUTROPHILS % (AUTO) 65.6 % (43.0-81.0); PLATELET COUNT (AUTO) 107 /CMM (150-450); RED BLOOD CELL COUNT(AUTO) 3.14 MIL/uL (4.5-6.0); WHITE BLOOD COUNT (AUTO) 3.7 K/uL (4.3-11.0)
[2018-10-20 08:30] LABS: CALCIUM, SERUM 8.7 mg/dL (8.5-10.1); CREATININE 1.6 mg/dL (0.6-1.3); POTASSIUM 4.1 mmol/L (3.5-5.1)
[2018-10-20] MEDS: MULTIPLE VIT (LYCOPENE/FA/MV,CA,IRON,MIN/LUT)1 TAB PO SCH (08:55)
[2018-10-20] MEDS: SPIRONOLACTONE 25 MG TABLET PO SCH (08:55)
[2018-10-20] MEDS: LEVOTHYROXINE SODIUM 75 MCG TABLET PO SCH (08:55)
[2018-10-20] MEDS: ZINC SULFATE 220 MG CAPSULE PO SCH (08:55)
[2018-10-20] MEDS: FENOFIBRATE NANOCRYS (145 MG) 145 MG TABLET PO SCH (08:55)
[2018-10-20] MEDS: BUMETANIDE (1 MG) 1 MG TABLET PO SCH (08:55)
[2018-10-20] MEDS: ASCORBIC ACID 500 MG TABLET PO SCH (08:55)
[2018-10-20] MEDS: FOLIC ACID 1 MG TABLET PO SCH (08:55)
[2018-10-20] MEDS: METOLAZONE 2.5 MG TABLET PO SCH (08:55)
[2018-10-20 08:56] VITALS: BP 127/64
[2018-10-20] MEDS: AMLODIPINE BESYLATE 5 MG TABLET PO SCH (08:56)
[2018-10-20] MEDS: CHOLECALCIFEROL 1,000 UNIT TABLET (VIT D3) PO SCH (08:56)
[2018-10-20] MEDS: LACTULOSE 10 G/15 ML UDC (PYXIS) PO SCH (08:56)
[2018-10-20] MEDS: THIAMINE HCL 100 MG TABLET PO SCH (08:56)
[2018-10-20] MEDS: CARVEDILOL 12.5 MG TABLET PO SCH (09:00)
[2018-10-20] MEDS ORDERED: BUME1TAB4 PO (09:29)
[2018-10-20] MEDS ORDERED: *INS REG SQ (09:29)
[2018-10-20] MEDS ORDERED: SPIR25TA PO (09:29)
[2018-10-20] MEDS ORDERED: METO2.5T7 PO (09:29)
[2018-10-20] MEDS: INSULIN REGULAR, HUMAN 100 UNIT/ML 3 ML VIAL SQ PRN (11:59)
--- NOTE | 2018-10-20 16:02 | NUR ---
DISCHARGE TO SNF INSTRUCTION GIVEN ORDERED. ALL QUESTIONS AND CONCERNS ADDRESSED. PATIENT VERBALIZED UNDERSTANDING. IV REMOVED WITH CATHETER INTACT, PRESSURE DRESSING APPLIED. MEDICATION RECONCILIATION FORM COMPLETED AND COPY GIVEN TO PATIENT. REPORT GIVEN TO MARGARITA AT [facility]. PATIENT TRANSPORTED BY [facility] WITH ALL PERSONAL BELONGINGS. NO DISTRESS NOTED AT TIME OF DEPARTURE.
== END 2018-10-20 16:01 | DRG 280 ==
LOC: ER 09:42 → TELE1 13:28 → MEDSG1 10-11 08:53
PROVIDERS: ADMIT Internal Medicine; ATTEND Internal Medicine
PROC: 0DB78ZX Excision of Stomach, Pylorus, Via Natural or Artificial Opening Endoscopic, Diagnostic (ICD-10-PCS; 2018-10-14)
PROC: 0DB48ZX Excision of Esophagogastric Junction, Via Natural or Artificial Opening Endoscopic, Diagnostic (ICD-10-PCS; 2018-10-14)
PROC: 0W9G3ZZ Drainage of Peritoneal Cavity, Percutaneous Approach (ICD-10-PCS; principal; 2018-10-14 15:00)
PROC: 5A1D70Z Performance of Urinary Filtration, Intermittent, Less than 6 Hours Per Day (ICD-10-PCS; 2018-10-16)
PROC: 05HM33Z Insertion of Infusion Device into Right Internal Jugular Vein, Percutaneous Approach (ICD-10-PCS; 2018-10-16)
PROC: B543ZZA Ultrasonography of Right Jugular Veins, Guidance (ICD-10-PCS; 2018-10-16)
PROC: 5A1D70Z Performance of Urinary Filtration, Intermittent, Less than 6 Hours Per Day (ICD-10-PCS; 2018-10-17)
PROC: 0W9G3ZZ Drainage of Peritoneal Cavity, Percutaneous Approach (ICD-10-PCS; 2018-10-18)
PROC: 05PY33Z Removal of Infusion Device from Upper Vein, Percutaneous Approach (ICD-10-PCS; 2018-10-18)
PROC: 02HV33Z Insertion of Infusion Device into Superior Vena Cava, Percutaneous Approach (ICD-10-PCS; 2018-10-18)
PROC: 0JH63XZ Insertion of Tunneled Vascular Access Device into Chest Subcutaneous Tissue and Fascia, Percutaneous Approach (ICD-10-PCS; 2018-10-18)
PROC: B518YZA Fluoroscopy of Superior Vena Cava using Other Contrast, Guidance (ICD-10-PCS; 2018-10-18)
PROC: 5A1D70Z Performance of Urinary Filtration, Intermittent, Less than 6 Hours Per Day (ICD-10-PCS; 2018-10-19)
DX: I21.4 Non-ST elevation (NSTEMI) myocardial infarction (principal); N17.0 Acute kidney failure with tubular necrosis; N18.6 End stage renal disease; R18.8 Other ascites; L97.829 Non-pressure chronic ulcer of other part of left lower leg with unspecified severity; I13.2 Hypertensive heart and chronic kidney disease with heart failure and with stage 5 chronic kidney disease, or end stage renal disease; J98.11 Atelectasis; K92.2 Gastrointestinal hemorrhage, unspecified; E11.42 Type 2 diabetes mellitus with diabetic polyneuropathy; I25.10 Atherosclerotic heart disease of native coronary artery without angina pectoris; K74.60 Unspecified cirrhosis of liver; E78.5 Hyperlipidemia, unspecified; Z86.73 Personal history of transient ischemic attack (TIA), and cerebral infarction without residual deficits; E11.22 Type 2 diabetes mellitus with diabetic chronic kidney disease; E66.01 Morbid (severe) obesity due to excess calories; F10.10 Alcohol abuse, uncomplicated; Z91.19 Patient's noncompliance with other medical treatment and regimen; Z68.32 Body mass index [BMI] 32.0-32.9, adult; I87.2 Venous insufficiency (chronic) (peripheral); G47.33 Obstructive sleep apnea (adult) (pediatric); D50.9 Iron deficiency anemia, unspecified; K29.70 Gastritis, unspecified, without bleeding; Z79.84 Long term (current) use of oral hypoglycemic drugs
CPT/HCPCS: 36415; 71045-TC; 76700-TC; 76770-TC; 76942-TC; 80048-TC; 80053-TC; 80074; 80076-TC; 80305; 81000-TC; 82040-TC; 82140-TC; 82272-TC; 82550-TC; 82570-TC; 82728-TC; 82962-TC; 83540-TC; 83735-TC; 83880; 83970; 84100-TC; 84155; 84155-TC; 84165; 84300-TC; 84439-TC; 84443-TC; 84484-TC; 85025-TC; 85730-TC; 86704; 86707; 86709-TC; 86850-TC; 87070-TC; 87081-TC; 87340; 88305-TC; 88312-TC; 88313-TC; 88342; 89051-TC; 90935-TC; 93307-TC; 93970-TC; A4216; A4217; A4606; A6253; A6402; A6403; C1750; G0378; J1200; J1644; J1815; J1940; J2405; J2704; J2916; J3010; J3490; J7030; Z7610

== ENCOUNTER 2018-11-21 10:15 | Outpatient (CLI) | payer MEDICARE, MEDICAID ==
[~2018-11-21 10:15] MED LIST changes: +*INS REG SQ; -AMLO5TAB7 PO; +AMLO5TAB9 PO; +BUME1TAB4 PO; +BUME2TAB3 PO; +CARV12.52 PO; +CLOP75TA15 PO; -METF-440 PO; +METO2.5T7 PO; +SPIR25TA PO
== END 2018-11-21 23:59 ==
LOC: WOU 10:15
PROVIDERS: ATTEND Podiatrist Foot & Ankle Surgery
DX: I87.312 Chronic venous hypertension (idiopathic) with ulcer of left lower extremity (principal); L97.828 Non-pressure chronic ulcer of other part of left lower leg with other specified severity; I87.2 Venous insufficiency (chronic) (peripheral); E11.42 Type 2 diabetes mellitus with diabetic polyneuropathy; Z83.3 Family history of diabetes mellitus; E03.9 Hypothyroidism, unspecified; K70.30 Alcoholic cirrhosis of liver without ascites
CPT/HCPCS: A6402; A6407; G0463

== ENCOUNTER 2019-01-23 10:00 | Outpatient (CLI) | payer MEDICARE, MEDICAID | END 2019-01-23 23:59 | disposition home or self-care (01) | LOC: WOU 10:00 | PROVIDERS: ATTEND Podiatrist Foot & Ankle Surgery | DX: Z51.89 Encounter for other specified aftercare (principal); E11.42 Type 2 diabetes mellitus with diabetic polyneuropathy; I87.2 Venous insufficiency (chronic) (peripheral); R60.0 Localized edema; E03.9 Hypothyroidism, unspecified; I11.0 Hypertensive heart disease with heart failure; I50.9 Heart failure, unspecified; K70.30 Alcoholic cirrhosis of liver without ascites; Z79.4 Long term (current) use of insulin; Z79.899 Other long term (current) drug therapy; Z79.82 Long term (current) use of aspirin | CPT/HCPCS: G0463 ==

== ENCOUNTER 2019-02-20 09:00 | Outpatient (CLI) | payer MEDICARE, MEDICAID | END 2019-02-20 23:59 | disposition home or self-care (01) | LOC: WOU 09:00 | PROVIDERS: ATTEND Podiatrist Foot & Ankle Surgery | DX: Z09 Encounter for follow-up examination after completed treatment for conditions other than malignant neoplasm (principal); E11.42 Type 2 diabetes mellitus with diabetic polyneuropathy; I87.2 Venous insufficiency (chronic) (peripheral); R60.0 Localized edema; E11.29 Type 2 diabetes mellitus with other diabetic kidney complication; N28.9 Disorder of kidney and ureter, unspecified; Z79.4 Long term (current) use of insulin; Z79.82 Long term (current) use of aspirin | CPT/HCPCS: G0463 ==

== ENCOUNTER 2019-03-08 07:27 | Emergency (ER) | payer MEDICARE, MEDICAID ==
[~2019-03-08] VITALS: Ht 167.6 cm; Wt 81.6 kg
[2019-03-08 08:24] LABS: BASOPHILS # (AUTO) 0.1 /CMM (0.0-0.2); BASOPHILS % (AUTO) 1.1 % (0.0-2.0); EOSINOPHILS % (AUTO) 7.3 % (0.0-6.0); HEMATOCRIT 35 % (39-51); HEMOGLOBIN 11.9 g/dL (13.5-17.5); MEAN CORPUSCULAR HGB CONC 34 g/dl (31.0-36.0); MEAN CORPUSCULAR VOLUME 90 fL (80-96); MONOCYTES # (AUTO) 0.4 /CMM (0.1-1.30); MONOCYTES % (AUTO) 7.3 % (2.0-12.0); NEUTROPHILS # (AUTO) 3.6 /CMM (1.8-8.9); NEUTROPHILS % (AUTO) 65.3 % (43.0-81.0); PLATELET COUNT (AUTO) 214 /CMM (150-450); RED BLOOD CELL COUNT(AUTO) 3.91 MIL/uL (4.5-6.0); WHITE BLOOD COUNT (AUTO) 5.4 K/uL (4.3-11.0)
[2019-03-08] MEDS ORDERED: HEPARIN SODIUM, PORCINE 5000 UNITS/1 ML VIAL IV ONE (08:30)
[2019-03-08 08:33] LABS: CALCIUM, SERUM 8.2 mg/dL (8.5-10.1); CREATININE 1.6 mg/dL (0.6-1.3); POTASSIUM 4.8 mmol/L (3.5-5.1)
[2019-03-08] MEDS ORDERED: HEPARIN SODIUM, PORCINE 5000 UNITS/1 ML VIAL ONE ×2 (08:33→08:40)
[2019-03-08 09:15] VITALS: BP 135/88
--- NOTE | 2019-03-08 09:16 | NUR ---
Patient discharged to home in stable condition. Written and verbal after care instructions given. Patient verbalizes understanding of instruction.
== END 2019-03-08 09:16 | disposition home or self-care (01) ==
LOC: ER 07:36
DX: N28.9 Disorder of kidney and ureter, unspecified (principal); I10 Essential (primary) hypertension; E11.9 Type 2 diabetes mellitus without complications; Z98.890 Other specified postprocedural states; Z79.4 Long term (current) use of insulin; Z79.899 Other long term (current) drug therapy
CPT/HCPCS: 36415; 71045; 80048; 85025; 96374; 99284; J1644 ×2

== ENCOUNTER 2019-03-30 00:45 | Inpatient (IN) | payer MEDICARE, MEDICAID ==
[2019-03-30] VITALS (8 sets, daily range): BP systolic 118–137; BP diastolic 47–69
[~2019-03-30] VITALS: Ht 172.7 cm; Wt 95.3 kg
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
--- NOTE | 2019-03-30 01:30 | NUR ---
IV LINE OBTAINED ON R HAND 20G. BLOOD DRAWN AND GIVEN TO LEAD DIE MOLDER AT BEDSIDE
--- NOTE | 2019-03-30 01:39 | NUR ---
XRAY AT BEDSIDE
[2019-03-30 01:46] LABS: BASOPHILS # (AUTO) 0.1 /CMM (0.0-0.2); BASOPHILS % (AUTO) 1.2 % (0.0-2.0); EOSINOPHILS % (AUTO) 0.3 % (0.0-6.0); HEMATOCRIT 34 % (39-51); HEMOGLOBIN 11.7 g/dL (13.5-17.5); LYMPHOCYTES % (AUTO) 14.5 % (20.0-44.0); MEAN CORPUSCULAR HGB CONC 35 g/dl (31.0-36.0); MEAN CORPUSCULAR VOLUME 90 fL (80-96); MONOCYTES # (AUTO) 0.4 /CMM (0.1-1.30); MONOCYTES % (AUTO) 5.7 % (2.0-12.0); NEUTROPHILS # (AUTO) 5.4 /CMM (1.8-8.9); NEUTROPHILS % (AUTO) 78.3 % (43.0-81.0); PLATELET COUNT (AUTO) 195 /CMM (150-450); RED BLOOD CELL COUNT(AUTO) 3.76 MIL/uL (4.5-6.0); WHITE BLOOD COUNT (AUTO) 6.9 K/uL (4.3-11.0)
[2019-03-30 01:48] LABS: CALCIUM, SERUM 8.3 mg/dL (8.5-10.1); CREATININE 3.2 mg/dL (0.6-1.3); POTASSIUM 4.4 mmol/L (3.5-5.1)
--- NOTE | 2019-03-30 03:06 | NUR ---
TELE BED 119-2
--- NOTE | 2019-03-30 03:27 | NUR ---
KIMBERLY ODONNELL ([facility]) - [phone] CALL PRIOR TO DISCHARGE Addendum: 03/30/19 at 0330 by KARLENE ANOTHER NUMBER [phone] - MAIN NUMBER
--- NOTE | 2019-03-30 03:32 | NUR ---
CALLED UNIT FOR REPORT. RECEIVING NURSE WILL CALL BACK
[2019-03-30 03:53] LABS: ALBUMIN 4.1 g/dL (3.4-5.0); BILIRUBIN,DIRECT 0.2 mg/dL (0.0-0.2); BILIRUBIN,TOTAL 0.4 mg/dL (0.2-1.0); TOTAL PROTEIN, SERUM 8.1 g/dL (6.4-8.2)
[2019-03-30] MEDS ORDERED: IV NS 0.9% 250 ML BAG IV ONE (04:00)
--- NOTE | 2019-03-30 04:08 | NUR ---
REPORT GIVEN TO ROSELINE BARBOSA PT GOING EVANGELIST 119-2
--- NOTE | 2019-03-30 04:15 | NUR ---
URINE COLLECTED SENT TO LAB
--- NOTE | 2019-03-30 04:47 | NUR ---
PT BEING TRANSPORTED TO UNIT ON [facility] WITH ACLS PROTOCOL. PT IS STABLE FOR TRANSPORT. NAD.
[2019-03-30] MEDS ORDERED: IV D5/0.45 NACL 1,000 ML IV PRN (05:26)
[2019-03-30] MEDS ORDERED: MAG HYDROX/AL HYDROX/SIMETH 30 ML UDC PO PRN (05:30)
[2019-03-30] MEDS ORDERED: ACETAMINOPHEN 325 MG TABLET PO PRN (05:30)
[2019-03-30] MEDS ORDERED: NITROGLYCERIN 0.4 MG/TAB BOTTLE SL SCH (05:30)
[2019-03-30] MEDS ORDERED: ONDANSETRON HCL/PF 4 MG/2 ML VIAL IVP PRN (05:30)
[2019-03-30] MEDS ORDERED: MAGNESIUM HYDROXIDE 30 ML UDC PO PRN (05:30)
[2019-03-30] MEDS ORDERED: Z GUARD REMEDY 2 OZ OINT TP PRN (05:30)
[2019-03-30] MEDS ORDERED: HYDROCODONE/APAP 5/325MG 1 EACH TABLET PO PRN (05:30)
--- NOTE | 2019-03-30 05:50 | NUR ---
RN NOTES RECEIVED PATIENT ON [facility]. PATIENT IS A/A/O X3 BUT VERY SLEEPY WITH BREATH OF ALCOHOL. PATIENT WAS PLACED ON INTERFACE DEVELOPER WITH SR. PATIENT IS ON O2 2L VIA NC WITH SPO2 OF 97%. SKIN ASSESSMENT IS DONE AND NO SKIN PROBLEMS. PATIENT IS CHANGED TO GOWN AND ORIENTED TO THE UNIT. PT HAS COMPLAIN OF PAIN , NO SOB AND NO DISCOMFORT AT THIS TIME. IV LINE ON RIGHT HAND G20 IS PATIENT AND INTACT. RIGHT CHEST WALL HD CATH IS IN PLACE ,INTACT. ALL SAFETY MEASURES ARE IMPLEMENTED, BED IN LOW, LOCKED POSITION, CALL LIGHT IN REACH. WILL CONTINUE TO MONITOR PATIENT CLOSELY.
--- NOTE | 2019-03-30 07:23 | NUR ---
RN OPENING NOTE PT WAS RECEIVED SLEEPING IN BED AT LOWEST AND LOCKED POSITION WITH SIDE RAILS UP X2, A/O X4, BREATHING EVEN AND UNLABORED ON 2L VIA NC, NO S/S OF ANY DISTRESS OR PAIN AT THIS TIME, IV IS PATENT AND INTACT, CURRENTLY NPO, NOTED TO BE ON TELE MONITOR SHOWING SINUS RHYTHM, SAFETY PRECAUTIONS IN PLACE, CALL LIGHT WITHIN REACH, WILL MONITOR PT ACCORDINGLY.
[2019-03-30] MEDS: LEVOTHYROXINE SODIUM 50 MCG TABLET PO SCH ×2 (07:30→09:18)
[2019-03-30] MEDS: METOPROLOL TARTRATE 25 MG TABLET PO SCH ×2 (09:18→21:06)
[2019-03-30] MEDS: FOLIC ACID 1 MG TABLET PO SCH (09:18)
[2019-03-30] MEDS: THIAMINE HCL 100 MG TABLET PO SCH (09:18)
[2019-03-30] MEDS: FENOFIBRATE NANOCRYS (145 MG) 145 MG TABLET PO SCH (09:18)
[2019-03-30] MEDS: AMLODIPINE BESYLATE 5 MG TABLET PO SCH (09:19)
[2019-03-30] MEDS: CLOPIDOGREL BISULFATE 75 MG TABLET PO SCH (09:19)
[2019-03-30] MEDS: CARVEDILOL 12.5 MG TABLET PO SCH ×2 (09:19→17:00)
[2019-03-30] MEDS: ISOSORBIDE MONONITRATE (30MG) 30 MG TAB.SR.24H PO SCH (09:20)
[2019-03-30] MEDS ORDERED: IOHEXOL-350 100 ML VIAL IV ONE (09:46)
[2019-03-30] MEDS ORDERED: METOPROLOL TARTRATE INJ 5 MG/5 ML AMPUL ONE ×2 (09:46→10:57)
[2019-03-30] MEDS ORDERED: IV NS 0.9% 250 ML IV ONE (09:47)
[2019-03-30] MEDS ORDERED: CT SWABBABLE VALVE TRANS SET 1 EA INFUS.SET MC ONE (09:47)
--- NOTE | 2019-03-30 10:15 | NUR ---
RN NOTE PT WAS TAKEN FOR CTA OF THE HEART AT THIS TIME, CONSENTS SINGED AND RIGHT AC #[id number]
--- NOTE | 2019-03-30 10:50 | NUR ---
RN NOTE PT BROUGHT BACK FOR CTA OF THE HEART AT THIS TIME, INFORMED BY DR. HARGROVE THAT PATIENT WILL RECEIVED HD LATER TODAY
[2019-03-30] MEDS ORDERED: LORAZEPAM INJ 2 MG/ML VIAL IV PRN (11:30)
--- NOTE | 2019-03-30 11:50 | NUR ---
RN/CTA 1025-PATIENT ALERT AND ORIENTED. AWARE OF MD ORDER/PROCEDURE. CONSENT SIGNED, NOTED IN THE CHART. TO CT VIA ACLS PROTOCOL. 1030-VS 126/68, 68, 18, 96%. 1ST DOSE OF LOPRESSOR 5MG IVP GIVEN BY ROSELINE MURO AT THIS TIME. 1033-O2 VIA NC PROVIDED. PATIENT TOLERATED. 1035-VS 115/60, 65, 16, 98%. 2ND DOSE OF LOPRESSOR 5MG IVP GIVEN BY ROSELINE MURO AT THIS TIME. 1038-VS 119/60, 63, 18, 98%. NITRO 0.4MG SL GIVEN BY ROSELINE MURO PRIOR TO CTA PROCEDURE. 1042-VS 113/57, 65, 17, 100%. CTA PROCEDURE COMPLETED. PATIENT DENIES PAIN OR SOB AT THIS TIME. 1045-PATIENT TRANSPORTED BACK TO ROOM 119-2. IN STABLE CONDITION. PRIMARY NURSE AWARE.
[2019-03-30] MEDS ORDERED: NITROGLYCERIN 0.4 MG/TAB BOTTLE SL ONE (12:00)
[2019-03-30] MEDS ORDERED: METOPROLOL TARTRATE INJ 5 MG/5 ML AMPUL IVP ONE (12:00)
--- NOTE | 2019-03-30 13:21 | NUR ---
RN NOTE ALICIA WAS MESSAGED REGARDING DIALYSIS FOR THIS PATIENT, HE INFORMED ME THAT HD IS PLANNED FOR LATER TODAY BUT NO SPECIFIC TIME GIVEN. WILL AWAIT AND MONITOR PT ACCORDINGLY
--- NOTE | 2019-03-30 15:51 | NUR ---
RN NOTE HEMODIALYSIS BEING DONE AT THIS TIME
--- NOTE | 2019-03-30 17:15 | NUR ---
RN NOTE 1700 DOSE OF SCHEDULED COREG NOT GIVEN DUE TO THE PATIENT CURRENTLY RECEIVING HEMODIALYSIS AT THIS TIME.
--- NOTE | 2019-03-30 18:03 | NUR ---
RN NOTE RECEIVED CALL FROM RADIOLOGIST REGARDING REPORT FOR PT CTA OF THE HEART, WAS INFORMED THAT THE PATIENT HAD SIGNIFICANT BLOCKAGE OF HIS LAD > 70% AND CALCIUM SCORE OF 1459. WILL INFORM NYLON MENDER OF RESULTS
--- NOTE | 2019-03-30 18:40 | NUR ---
RN NOTE MADE AWARE, WITH A COMMENT OF MEDICAL THERAPY. WILL MONITOR PT ACCORDINGLY AND INFORM ACCOUNT CONSULTANT RN
--- NOTE | 2019-03-30 18:45 | NUR ---
RN CLOSING NOTE PT SLEEPING IN BED AT LOWEST AND LOCKED POSITION WITH SIDE RAILS UP X2, A/O X4 BREATHING EVEN AND UNLABORED ON 2L VIA NC WITH NO S/S OF ANY DISTRESS OR PAIN AT THIS TIME, IV IS PATENT AND INTACT, ON TELE MONITOR SHOWING SINUS RHYTHM, SAFETY PRECAUTIONS IN PLACE, CALL LIGHT WITHIN REACH, ALL NEEDS ATTENDED TO, WILL ENDORSE TO TELERADIOLOGIST RN FOR ALMA DELIA.
--- NOTE | 2019-03-30 19:53 | NUR ---
GRINDER SETUP OPERATOR NOTE: RECEIVED PT ON BED ALERT AND ORIENTED X3. ABLE TO MAKE NEEDS KNOWN. NO APPARENT DISTRESS NOTED AT THIS TIME. ON 2LPM NASAL CANNULA, NO SOB NOTED. IV ON RIGHT ANTECUBITAL #18 AND RIGHT HAND #20 INTACT AND PATENT, FLUSHING WELL. NO SIGNS/SYMPTOMS OF INFILTRATION NOTED. SINUS RHYTHM ON TELE MONITOR HR 72BPM. CALL LIGHT PLACED WITHIN REACH. KEPT CLEAN, DRY AND COMFORTABLE. SAFETY AND FALL PRECAUTIONS OBSERVED AND MAINTAINED. WILL CONTINUE TO MONITOR PT.
[2019-03-30] MEDS: SIMVASTATIN 40 MG TABLET PO SCH (21:06)
[2019-03-31] VITALS: BP 114/52
[2019-03-31 04:00] VITALS: BP 108/46
--- NOTE | 2019-03-31 06:48 | NUR ---
ANALYST MARKET INTELLIGENCE NOTE: NO CHANGES NOTED THROUGHOUT THE SHIFT. NO APPARENT DISTRESS NOTED. DENIES PAIN AND DISCOMFORT AT THIS TIME. ON 2LPM NASAL CANNULA, BREATHING EVEN AND UNLABORED WITH NORMAL RESPIRATIONS. SINUS RHYTHM ON TELE MONITOR HR 62BPM. IV ON RIGHT HAND #20 AND RIGHT ANTECUBITAL #18 INTACT AND PATENT, FLUSHING WELL. KEPT CLEAN, DRY AND COMFORTABLE. SAFETY AND FALL PRECAUTIONS OBSERVED AND MAINTAINED. WILL ENDORSE TO DAY SHIFT RN FOR CONTINUITY OF CARE.
[2019-03-31 07:23] LABS: BASOPHILS % (AUTO) 0.6 % (0.0-2.0); EOSINOPHILS % (AUTO) 2.3 % (0.0-6.0); HEMATOCRIT 29 % (39-51); LYMPHOCYTES # (AUTO) 0.6 /CMM (0.8-4.8); LYMPHOCYTES % (AUTO) 10.4 % (20.0-44.0); MEAN CORPUSCULAR HGB CONC 35 g/dl (31.0-36.0); MEAN CORPUSCULAR VOLUME 90 fL (80-96); MONOCYTES # (AUTO) 0.5 /CMM (0.1-1.30); MONOCYTES % (AUTO) 9.4 % (2.0-12.0); NEUTROPHILS # (AUTO) 4.4 /CMM (1.8-8.9); NEUTROPHILS % (AUTO) 77.3 % (43.0-81.0); PLATELET COUNT (AUTO) 169 /CMM (150-450); RED BLOOD CELL COUNT(AUTO) 3.21 MIL/uL (4.5-6.0); WHITE BLOOD COUNT (AUTO) 5.7 K/uL (4.3-11.0)
[2019-03-31 07:29] LABS: CALCIUM, SERUM 7.9 mg/dL (8.5-10.1); CREATININE 3.6 mg/dL (0.6-1.3); MAGNESIUM 2.4 mg/dL (1.8-2.4); PHOSPHORUS 5.4 mg/dL (2.5-4.9); POTASSIUM 4.4 mmol/L (3.5-5.1)
[2019-03-31 07:32] LABS: THYROID STIMULATING HORMONE 1.277 uIU/mL (0.358-3.74)
[2019-03-31] MEDS: LEVOTHYROXINE SODIUM 50 MCG TABLET PO SCH (07:34)
--- NOTE | 2019-03-31 07:48 | NUR ---
RN NOTE: PATIENT RECEIVED ALERT AWAKE ORIENTED X 3. ON 2LPM O2 VIA NC, NO BREATHING DISTRESS NOTED. C/O BILATERAL HIP PAIN CHRONIC, NORCO PO GIVEN ORDERED. WILL REASSESS PAIN LEVEL. SAFETY MEASURES OBSERVED. ENCOURAGE TO USE CALL LIGHT FOR ASSISTANCE. CONTINUE WITH PLAN OF CARE.
[2019-03-31 08:00] VITALS: BP 128/82
[2019-03-31] MEDS: FENOFIBRATE NANOCRYS (145 MG) 145 MG TABLET PO SCH (08:43)
[2019-03-31] MEDS: AMLODIPINE BESYLATE 5 MG TABLET PO SCH (08:43)
[2019-03-31] MEDS: FOLIC ACID 1 MG TABLET PO SCH (08:43)
[2019-03-31] MEDS: CLOPIDOGREL BISULFATE 75 MG TABLET PO SCH (08:43)
[2019-03-31] MEDS: THIAMINE HCL 100 MG TABLET PO SCH (08:43)
[2019-03-31] MEDS: CARVEDILOL 12.5 MG TABLET PO SCH ×2 (08:44→17:00)
[2019-03-31] MEDS: ISOSORBIDE MONONITRATE (30MG) 30 MG TAB.SR.24H PO SCH (08:44)
[2019-03-31] MEDS: METOPROLOL TARTRATE 25 MG TABLET PO SCH ×2 (08:44→21:09)
--- NOTE | 2019-03-31 10:58 | NUR ---
RN NOTE: CT ANGIO RESULTS SPOKE WITH DR. SCHOFIELD OUTSIDE MAINTENANCE WORKER, PER DR. GARCIA MEDICAL THERAPY AT THIS TIME. DR. GIANG MADE AWARE, NO NEW ORDERS AT THIS TIME. CARDIOLOGY FOLLOWING. CT ANGIO RESULTS NOTED & MD NOTIFIED. Focal stenosis of the proximal LAD is potentially severe measuring greater than 70% due to atherosclerotic plaque. Focal mild stenosis of the left main coronary artery measure up to 30% due to calcified atherosclerotic plaque. Focal mild stenosis of the proximal left circumflex coronary artery measuring up to 50% due to calcified atherosclerotic plaque. Focal moderate stenosis of the proximal right coronary artery measuring 50 75% due to calcified atherosclerotic plaque. CONTINUE TO MONITOR. PT DENIES CHEST DISCOMFORT. NO RESPIRATORY DISTRESS NOTED.
[2019-03-31 12:00] VITALS: BP 115/52
[2019-03-31 16:00] VITALS: BP 129/72
--- NOTE | 2019-03-31 18:42 | NUR ---
RN NOTE: PATIENT REMAINS ALERT AWAKE ORIENTED X 3. DENIES CHEST PAIN & DISCOMFORT. PLAN TO TRANSFER TO [facility] FOR HEART CATH. REPORT GIVEN TO BERNIE DUKES AT [phone] EXT [phone], ROOM NO. 4314 (2). PATIENTS BROTHER MYRNA CALLED, REQUESTED TO TRANSFER TO [facility] INSTEAD OF [facility]. REQUEST RELAYED TO ALARM INVESTIGATOR & SANDY DIRECTOR OF RETAIL. WILL FOLLOW. SCHOOL BUS DRIVER SCHEDULE FOR 1929 TODAY. PATIENT IS AGREE AT THIS TIME WITH CURRENT PLAN.
--- NOTE | 2019-03-31 19:18 | NUR ---
RECEIVED CALL FROM MYRNA CASTRO TO CANCEL TRANSFER TO [facility]. PATIENT IS AGREE WITH BROTHER. CALLED & SPOKE WITH JOSSE MINING MANAGER, PER JOSSE SHE LEFT FROM HOSPITAL ALREADY. WILL FOLLOW UP TOMORROW. CALLED EDGAR TO CANCEL PIPE CREW FOREMAN AT THIS TIME. REPORT GIVEN TO ONCOMING RN FOR CONTINUITY OF CARE.
--- NOTE | 2019-03-31 19:30 | NUR ---
SPORTS MANAGEMENT INTERNSHIP NOTE: RECEIVED PT ON BED ALERT AND ORIENTED X3. ABLE TO MAKE NEEDS KNOWN. BROTHER KIMBERLY AT BEDSIDE. NO APPARENT DISTRESS NOTED AT THIS TIME. ON 2LPM NASAL CANNULA, NO SOB NOTED. IV ON RIGHT ANTECUBITAL #18 AND RIGHT HAND #20 INTACT AND PATENT, FLUSHING WELL. NO SIGNS/SYMPTOMS OF INFILTRATION NOTED. SINUS RHYTHM ON TELE MONITOR HR 66BPM. CALL LIGHT PLACED WITHIN REACH. KEPT CLEAN, DRY AND COMFORTABLE. SAFETY AND FALL PRECAUTIONS OBSERVED AND MAINTAINED. WILL CONTINUE TO MONITOR PT.
[2019-03-31 20:00] VITALS: BP 120/60
[2019-03-31] MEDS: SIMVASTATIN 40 MG TABLET PO SCH (21:09)
[2019-04-01] VITALS: BP 146/65
[2019-04-01 04:00] VITALS: BP 137/58
[2019-04-01 07:03] LABS: BASOPHILS % (AUTO) 0.6 % (0.0-2.0); EOSINOPHILS % (AUTO) 5.9 % (0.0-6.0); HEMATOCRIT 30 % (39-51); HEMOGLOBIN 10.3 g/dL (13.5-17.5); LYMPHOCYTES # (AUTO) 0.9 /CMM (0.8-4.8); LYMPHOCYTES % (AUTO) 15.5 % (20.0-44.0); MEAN CORPUSCULAR HGB CONC 35 g/dl (31.0-36.0); MEAN CORPUSCULAR VOLUME 91 fL (80-96); MONOCYTES # (AUTO) 0.5 /CMM (0.1-1.30); MONOCYTES % (AUTO) 8.1 % (2.0-12.0); NEUTROPHILS # (AUTO) 3.9 /CMM (1.8-8.9); NEUTROPHILS % (AUTO) 69.9 % (43.0-81.0); PLATELET COUNT (AUTO) 149 /CMM (150-450); RED BLOOD CELL COUNT(AUTO) 3.24 MIL/uL (4.5-6.0); WHITE BLOOD COUNT (AUTO) 5.6 K/uL (4.3-11.0)
--- NOTE | 2019-04-01 07:16 | NUR ---
CONCRETE FINISHER APPRENTICE NOTE: NO CHANGES NOTED THROUGHOUT THE SHIFT. NO APPARENT DISTRESS NOTED. DENIES PAIN AND DISCOMFORT AT THIS TIME. ON ROOM AIR, BREATHING EVEN AND UNLABORED WITH NORMAL RESPIRATIONS. SINUS RHYTHM ON TELE MONITOR HR 65BPM. IV ON RIGHT HAND #20 AND RIGHT ANTECUBITAL #18 INTACT AND PATENT, FLUSHING WELL. KEPT CLEAN, DRY AND COMFORTABLE. SAFETY AND FALL PRECAUTIONS OBSERVED AND MAINTAINED. WILL ENDORSE TO DAY SHIFT RN FOR CONTINUITY OF CARE.
[2019-04-01 07:17] LABS: CALCIUM, SERUM 7.9 mg/dL (8.5-10.1); CREATININE 4.2 mg/dL (0.6-1.3); POTASSIUM 4.4 mmol/L (3.5-5.1)
--- NOTE | 2019-04-01 07:30 | NUR ---
RN NOTES RECEIVED PATIENT IN BED, ASLEEP BUT EASILY AWAKEN BY VERBAL STIMULI, ABLE TO RESPOND APPROPRIATELY AND MAKE NEEDS KNOWN. ORIENTED X3. NOT ON ANY FORM OF DISTRESS, NO COMPLAINTS OF PAIN. ON ROOM AIR BREATHING UNLABORED. SINUS RHYTHM ON THE MONITOR WITH HR 69. IV ACCESS NOTED ON RIGHT ANTECUBITAL #18 AND RIGHT HAND #[address] AND INTACT, PATENT ON FLUSHING. PATIENT ENCOURAGE TO CALL FOR HELP AND ASSISTANCE. PLAN OF CARE DISCUSSED TO THE PATIENT. CALL LIGHT PLACED WITHIN REACHED. SAFETY AND FALL PRECAUTIONS OBSERVED AND MAINTAINED. WILL CONTINUE TO MONITOR PATIENT AND ANTICIPATE NEEDS.
[2019-04-01 08:00] VITALS: BP 128/63
[2019-04-01] MEDS: FENOFIBRATE NANOCRYS (145 MG) 145 MG TABLET PO SCH (08:48)
[2019-04-01] MEDS: LEVOTHYROXINE SODIUM 50 MCG TABLET PO SCH (08:49)
[2019-04-01] MEDS: THIAMINE HCL 100 MG TABLET PO SCH (08:49)
[2019-04-01] MEDS: FOLIC ACID 1 MG TABLET PO SCH (08:49)
[2019-04-01] MEDS: CLOPIDOGREL BISULFATE 75 MG TABLET PO SCH (08:49)
[2019-04-01] MEDS: METOPROLOL TARTRATE 25 MG TABLET PO SCH (08:49)
[2019-04-01] MEDS: ISOSORBIDE MONONITRATE (30MG) 30 MG TAB.SR.24H PO SCH (08:50)
[2019-04-01] MEDS: CARVEDILOL 12.5 MG TABLET PO SCH ×2 (08:50→16:38)
[2019-04-01] MEDS: AMLODIPINE BESYLATE 5 MG TABLET PO SCH (08:50)
[2019-04-01 12:00] VITALS: BP 110/61
[2019-04-01] MEDS ORDERED: FOLI1TAB16 PO (15:22)
[2019-04-01] MEDS ORDERED: THIA100T74 PO (15:22)
[2019-04-01] MEDS ORDERED: LORA1TAB PO (15:22)
[2019-04-01 16:00] VITALS: BP 120/62
[2019-04-01] MEDS ORDERED: PNEUMOCOCCAL 23-VAL P-SAC VAC 0.5 ML VIAL SQ ONE (16:00)
--- NOTE | 2019-04-01 16:00 | NUR ---
RN NOTES AFTER MULTIPLE TALKS REGARDING PATIENT GETTING TRANSFERRED TO [facility] VS [facility] (PATIENT PREFERENCE) PATIENT AGREES TO BE DISCHARGE AND THAT HE'S JUST GONNA GO AND SEE HIS PRIMARY DOCTOR WHOSE GONNA BE SETTING UP THE CARDIAC PROCEDURE. OBTAINED DISCHARGE ORDER.
--- NOTE | 2019-04-01 16:15 | NUR ---
RN NOTES DISCHARGED ORDER FACILITATED. ALL DISCHARGE QUESTION AND CONCERNS ADDRESSED APPROPRIATELY. ALL MEDICATION AND DISCHARGE INSTRUCTION GIVEN TO THE PATIENT. PNEUMONIA VACCINES GIVEN TO PATIENT. ALL BELONGINGS ACCOUNTED FOR AND GIVEN BACK TO THE PATIENT. NO SKIN PICTURES TAKEN DUE TO SKIN INTACT. PATIENT KEPT IN THE BED WHILE WAITING FOR THE BROTHER TO COME PICK HIM UP.
[2019-04-01 16:38] VITALS: BP 120/62
--- NOTE | 2019-04-01 18:23 | NUR ---
RN NOTES PATIENT OUT OF THE UNIT ACCOMPANIED BY THE BROTHER, AMBULATORY WITH THE WALKER. REFUSED BEING WHEELED OUT THROUGH THE WHEELCHAIR. IV LINES REMOVED. ID BANDS REMOVED. PACKETS HANDED TO THE BROTHER
== END 2019-04-01 19:00 | disposition home health service (06) | DRG 896 ==
LOC: ER 00:47 → TELE1 04:02
PROVIDERS: ADMIT Family Medicine; ATTEND Family Medicine
PROC: 5A1D70Z Performance of Urinary Filtration, Intermittent, Less than 6 Hours Per Day (ICD-10-PCS; principal; 2019-03-30)
PROC: 5A1D70Z Performance of Urinary Filtration, Intermittent, Less than 6 Hours Per Day (ICD-10-PCS; 2019-03-31)
DX: F10.229 Alcohol dependence with intoxication, unspecified (principal); N18.6 End stage renal disease; I21.A1 Myocardial infarction type 2; I13.2 Hypertensive heart and chronic kidney disease with heart failure and with stage 5 chronic kidney disease, or end stage renal disease; E87.1 Hypo-osmolality and hyponatremia; N17.9 Acute kidney failure, unspecified; Y90.8 Blood alcohol level of 240 mg/100 ml or more; E11.22 Type 2 diabetes mellitus with diabetic chronic kidney disease; Z99.2 Dependence on renal dialysis; Z79.4 Long term (current) use of insulin; Z86.73 Personal history of transient ischemic attack (TIA), and cerebral infarction without residual deficits; Z79.899 Other long term (current) drug therapy; Z79.02 Long term (current) use of antithrombotics/antiplatelets; D64.9 Anemia, unspecified; I25.10 Atherosclerotic heart disease of native coronary artery without angina pectoris; I25.2 Old myocardial infarction; E86.1 Hypovolemia; Z91.15 Patient's noncompliance with renal dialysis; I48.91 Unspecified atrial fibrillation; I50.9 Heart failure, unspecified
CPT/HCPCS: 36415; 71045-TC; 75574; 80048-TC; 80061-TC; 80076-TC; 80305; 83690-TC; 83735-TC; 83880; 84100-TC; 84443-TC; 84484-TC; 85025-TC; 85730-TC; 86706; 87081-TC; 87340; 90732; 90935-TC; A6403; G0378; G0480; J2060; J3490; J7050; Q9967

== ENCOUNTER 2019-04-24 10:50 | Outpatient (CLI) | payer MEDICARE, MEDICAID ==
[~2019-04-24 10:50] MED LIST changes: -BUME1TAB4 PO; +BUME1TAB8 PO; -BUME2TAB3 PO; +BUME2TAB7 PO; +FOLI1TAB16 PO; +LORA1TAB PO; +THIA100T74 PO
== END 2019-04-24 23:59 | disposition home or self-care (01) ==
LOC: WOU 10:50
PROVIDERS: ATTEND Podiatrist Foot & Ankle Surgery
DX: S91.115A Laceration without foreign body of left lesser toe(s) without damage to nail, initial encounter (principal); W19.XXXA Unspecified fall, initial encounter; Y92.89 Other specified places as the place of occurrence of the external cause; E11.42 Type 2 diabetes mellitus with diabetic polyneuropathy; Z87.891 Personal history of nicotine dependence; F10.11 Alcohol abuse, in remission; Y90.9 Presence of alcohol in blood, level not specified; E03.9 Hypothyroidism, unspecified; I11.0 Hypertensive heart disease with heart failure; I50.9 Heart failure, unspecified; Z59.0 Homelessness; Z79.899 Other long term (current) drug therapy
CPT/HCPCS: A6402; G0463

== ENCOUNTER 2019-05-05 10:20 | Outpatient (CLI) | payer MEDICARE, MEDICAID ==
[~2019-05-05 10:20] MED LIST changes: +BUME1TAB4 PO; -BUME1TAB8 PO; +BUME2TAB3 PO; -BUME2TAB7 PO
== END 2019-05-05 23:59 | disposition home or self-care (01) ==
LOC: WOU 10:20
PROVIDERS: ATTEND Podiatrist Foot & Ankle Surgery
DX: S91.312A Laceration without foreign body, left foot, initial encounter (principal); W19.XXXA Unspecified fall, initial encounter; Y92.89 Other specified places as the place of occurrence of the external cause; E11.42 Type 2 diabetes mellitus with diabetic polyneuropathy; K70.30 Alcoholic cirrhosis of liver without ascites; F10.11 Alcohol abuse, in remission; Y90.9 Presence of alcohol in blood, level not specified; I11.0 Hypertensive heart disease with heart failure; I50.9 Heart failure, unspecified; Z87.891 Personal history of nicotine dependence; E03.9 Hypothyroidism, unspecified; Z59.0 Homelessness; Z79.82 Long term (current) use of aspirin; Z79.4 Long term (current) use of insulin
CPT/HCPCS: 11042; 82962-TC; A6402

== ENCOUNTER 2019-07-24 09:30 | Outpatient (CLI) | payer MEDICARE, MEDICAID ==
[~2019-07-24 09:30] MED LIST changes: -BUME1TAB4 PO; +BUME1TAB8 PO; -BUME2TAB3 PO; +BUME2TAB7 PO
== END 2019-07-24 23:59 | disposition home or self-care (01) ==
LOC: WOU 09:30
PROVIDERS: ATTEND Podiatrist Foot & Ankle Surgery
DX: E11.621 Type 2 diabetes mellitus with foot ulcer (principal); L97.522 Non-pressure chronic ulcer of other part of left foot with fat layer exposed; E11.42 Type 2 diabetes mellitus with diabetic polyneuropathy; S91.115D Laceration without foreign body of left lesser toe(s) without damage to nail, subsequent encounter; W19.XXXD Unspecified fall, subsequent encounter; Z87.891 Personal history of nicotine dependence; F10.11 Alcohol abuse, in remission; Y90.9 Presence of alcohol in blood, level not specified; E03.9 Hypothyroidism, unspecified; Z79.4 Long term (current) use of insulin; Z79.82 Long term (current) use of aspirin; Z79.890 Hormone replacement therapy
CPT/HCPCS: 11042

== ENCOUNTER 2019-09-01 17:55 | Emergency (ER) | payer MEDICARE, MEDICAID ==
[~2019-09-01] VITALS: Ht 172.7 cm; Wt 95.7 kg
[2019-09-01 18:16] VITALS: BP 113/60
== END 2019-09-01 18:55 | disposition home or self-care (01) ==
LOC: ER 18:05
DX: S01.01XD Laceration without foreign body of scalp, subsequent encounter (principal); I10 Essential (primary) hypertension; E11.9 Type 2 diabetes mellitus without complications; N19 Unspecified kidney failure; F10.10 Alcohol abuse, uncomplicated; E78.00 Pure hypercholesterolemia, unspecified; Y90.9 Presence of alcohol in blood, level not specified; Z99.2 Dependence on renal dialysis; Z98.890 Other specified postprocedural states; Z79.4 Long term (current) use of insulin; Z79.899 Other long term (current) drug therapy; W18.09XD Striking against other object with subsequent fall, subsequent encounter

== ENCOUNTER 2019-12-10 18:20 | Inpatient (IN) | payer MEDICARE, MEDICAID ==
[~2019-12-10] VITALS: Ht 175.3 cm; Wt 105.7 kg
[~2019-12-10 18:20] MED LIST changes: +FENO145T21 PO; -FENO145T35 PO
--- NOTE | 2019-12-10 18:41 | NUR ---
PT HAS DIALYSIS ON M,W,F AT [facility]. DR. MIKAYLA CONKLIN IS NEPHOLOGIST. PRIMARY IS DR. OROZCO. ACCORDING TO BROTHER LAST DIALYSIS WAS 12/05/19. SCHEDULED FOR [facility] ON 12/16/19. LAST DRINK AROUND 1200. PT DRANK 2 24 OZ CANS AND HALF PINT OF VODKA. [phone] KIMBERLY GABRIEL (BROTHER).
--- NOTE | 2019-12-10 21:26 | NUR ---
ATTEMPTED TO CALL PT BROTHER FOR GARBAGE TRUCK DISPATCHER, NO ANSWER.
[2019-12-10 23:16] LABS: BASOPHILS # (AUTO) 0.1 /CMM (0.0-0.2); BASOPHILS % (AUTO) 0.8 % (0.0-2.0); HEMATOCRIT 31 % (39-51); HEMOGLOBIN 10.8 g/dL (13.5-17.5); LYMPHOCYTES # (AUTO) 1.9 /CMM (0.8-4.8); LYMPHOCYTES % (AUTO) 22.7 % (20.0-44.0); MEAN CORPUSCULAR HGB CONC 34 g/dl (31.0-36.0); MEAN CORPUSCULAR VOLUME 93 fL (80-96); MONOCYTES # (AUTO) 0.3 /CMM (0.1-1.30); NEUTROPHILS # (AUTO) 5.8 /CMM (1.8-8.9); NEUTROPHILS % (AUTO) 70.5 % (43.0-81.0); PLATELET COUNT (AUTO) 211 /CMM (150-450); WHITE BLOOD COUNT (AUTO) 8.3 K/uL (4.3-11.0)
[2019-12-10 23:41] LABS: ALBUMIN 3.8 g/dL (3.4-5.0); BILIRUBIN,DIRECT 0.1 mg/dL (0.0-0.2); BILIRUBIN,TOTAL 0.3 mg/dL (0.2-1.0); CALCIUM, SERUM 7.7 mg/dL (8.5-10.1); CREATININE 2.9 mg/dL (0.6-1.3); POTASSIUM 4.5 mmol/L (3.5-5.1); TOTAL PROTEIN, SERUM 7.3 g/dL (6.4-8.2)
--- NOTE | 2019-12-11 00:56 | NUR ---
BED ASSIGNMENT 322-2
[2019-12-11] MEDS ORDERED: TEMAZEPAM 15 MG CAPSULE PO PRN (01:00)
[2019-12-11] MEDS ORDERED: DEXTROSE 50%-WATER 50 ML DISP.SYRIN IV PRN (01:00)
[2019-12-11] MEDS ORDERED: HYDROCODONE/APAP 5/325MG 1 EACH TABLET PO PRN (01:00)
[2019-12-11] MEDS ORDERED: ONDANSETRON HCL/PF 4 MG/2 ML VIAL IVP PRN (01:00)
[2019-12-11] MEDS ORDERED: ACETAMINOPHEN 325 MG TABLET PO PRN (01:00)
[2019-12-11] MEDS ORDERED: MORPHINE SULFATE INJ 2 MG/ML DISP.SYRIN IV PRN (01:00)
[2019-12-11 03:45] VITALS: BP 126/43
--- NOTE | 2019-12-11 03:45 | NUR ---
TELE COUNTER INSTALLER INITIAL NOTES ADMIT PT FROM ER VIA [facility] ACCOMPANIED BY ER NURSE AND TECH. DX OF ACUTE ENCEPHALOPATY. PT IS AWAKE AND ALERT SMELLS LIKE ALCOHOL. NO N/V NOTED. ABLE TO GIVE INFORMATION ABOUT HIMSELF. ASSESSMENT DONE AND RECORDED. TELE SR WITH ST ELEVATION. PT AWARE WHERE HE AT AND HOW TO USED THE CALL LIGHT SYSTEM. KEPT HIM WARM AND COMFORTABLE AT ALL TIMES. CALL LIGHT AT REACH.
[2019-12-11 04:10] VITALS: BP 126/43
--- NOTE | 2019-12-11 07:00 | NUR ---
TELE STENCIL PRINTER CLOSING NOTES PT SLEEPING AT THIS TIME. WITHOUT ANY DISTRESS NOTED. TELE SR WITH ST ELEVATION. STABLE SINCE HE CAME UP NO SIGNS OF ANY ACUTE DISTRESS NOTED. ALL NEEDS MET. KEPT HIM WARM AND COMFORTABLE AT ALL TIMES. PLACE CALL LIGHT AT REACH. ENDORSE TO AM NURSE.
[2019-12-11] MEDS: BLOOD SUGAR DIAGNOSTIC 1 EACH STRIP IN SCH ×4 (07:26→21:28)
--- NOTE | 2019-12-11 07:30 | NUR ---
Tele/RN - Assessment Patient is awake, A/O x 3, tele shows SR, denies chest pain, no apparent distress, afebrile, stable on room air. Saline lock on the left hand is patent, intact, with no signs of infiltration. Patient educated on plan of care, scheduled for HD treatment today. Will continue with current medical management.
[2019-12-11] MEDS: PANTOPRAZOLE 40 MG TABLET.DR PO SCH (07:36)
[2019-12-11 08:00] VITALS: BP 135/67
[2019-12-11] MEDS ORDERED: Magnesium 1GM/D5W 100ML PREMIX 100 ML IV SCH (08:00)
[2019-12-11] MEDS: BUMETANIDE (1 MG) 1 MG TABLET PO SCH ×2 (08:43→20:33)
[2019-12-11] MEDS: LEVOTHYROXINE SODIUM 50 MCG TABLET PO SCH (08:43)
[2019-12-11] MEDS: METOLAZONE 2.5 MG TABLET PO SCH (08:43)
[2019-12-11] MEDS: FOLIC ACID 1 MG TABLET PO SCH (08:43)
[2019-12-11] MEDS: FENOFIBRATE NANOCRYS (145 MG) 145 MG TABLET PO SCH (08:43)
[2019-12-11] MEDS: INSULIN REGULAR, HUMAN 100 UNIT/ML 3 ML VIAL SQ PRN ×3 (08:44→21:28)
[2019-12-11] MEDS: CARVEDILOL 12.5 MG TABLET PO SCH ×2 (08:45→20:33)
[2019-12-11] MEDS: AMLODIPINE BESYLATE 5 MG TABLET PO SCH (08:46)
[2019-12-11] MEDS: ISOSORBIDE MONONITRATE (30MG) 30 MG TAB.SR.24H PO SCH (08:46)
[2019-12-11] MEDS: SPIRONOLACTONE 25 MG TABLET PO SCH (08:47)
[2019-12-11] MEDS ORDERED: CARVEDILOL 12.5 MG TABLET PO SCH (09:00)
[2019-12-11] MEDS ORDERED: METOPROLOL TARTRATE 25 MG TABLET PO SCH (09:00)
--- NOTE | 2019-12-11 15:41 | NUR ---
Social service consult requested by MD for homelessness and alcohol abuse. Per chart review and MD notes, pt is a 59-year-old Male brought in by ambulance from streets to the ED for evaluation of alcohol intoxication. Pt was admitted for elevated troponin level. ECCLESIASTICAL WORKER met with the pt bedside. ECCLESIASTICAL WORKER introduced self and explained her role. Pt is alert and oriented x 4. Pt appears disheveled. Initially pt was defensive, however pt became less defensive and more cooperative as the assessment continued. Pt. states he is homeless and has been living in the streets when he is not in a SNF. Pt reports to have drank 2 bottles of vodka last night. Pt. stated, " I am a chronic alcoholic." Pt has been to several treatment programs in the past. The most recent program was at [facility]. Pt declined to go to treatment again when ECCLESIASTICAL WORKER offered. Pt ambulates with a walker, which is bedside. Pt has siblings that he is in contact with. Pt receives $800 in SSI. ECCLESIASTICAL WORKER offered pt SNF placement if deemed appropriate. Pt stated, he will speak to his brother and will follow up with ECCLESIASTICAL WORKER tomorrow regarding SNF placement. Pt reports to have been at [facility] and [facility] in the past. Pt reports to have a history of spinal cord surgery 8 years ago at [facility]. Pt denies any psychiatric diagnoses at this time. Pt. denies suicidal and homicidal ideations and visual/auditory hallucinations at this time. ECCLESIASTICAL WORKER did offer pt winter care home placement, however pt declined stating, " I have enemies there." ECCLESIASTICAL WORKER to follow up with pt tomorrow to discuss discharge plan. ECCLESIASTICAL WORKER consulted with case manager specialist Veronica regarding pt. considering SNF placement. No other social service needs are requested at this time. ECCLESIASTICAL WORKER is available, if needed.
[2019-12-11 16:00] VITALS: BP 121/58
--- NOTE | 2019-12-11 19:01 | NUR ---
MS RN NOTES PATIENT CURRENTLY IN BED, AWAKE, A/O X4, RECEIVING DIALYSIS. PATIENT DENIES PAIN. ON ROOM AIR BREATHING EVENLY AND WITH NO S/S OF SOB AT THE MOMENT. L HAND HC GAUGE # 18 PRESENT AND FLUSHING WELL. ALL NEEDS ATTENDED TOO. SAFETY PRECAUTIONS IN PLACE; BED IN LOW POSITION AND LOCKED, RAILS UP X2, CALL LIGHT WITHIN REACH. WILL ENDORSE TO ALLIGATOR TRAPPER NURSE.
[2019-12-11 20:00] VITALS: BP_SYST 134; BP_DIAS 53; BP_DIAS 59
--- NOTE | 2019-12-11 20:00 | NUR ---
MS/RN OPENING NOTES RECEIVED PATIENT IN BED, HOB ELEVATED, ABLE TO AMBULATE WITH SUPERVISION SITTING DOEM AND VERBALIZE CONCERNS, BROTHER WAS ASSISTING PATIENT AT HOME REPORTED, S/P HD OF 2.5 LITER OUT. DISCUSSED PLAN OF CARE. WILL ATTEND AND MONITOR FOR ANY CHANGES, RESPIRATIONS EVEN AND UNLABORED. WILL MONITOR. DENIES PAIN AT THIS TIME.
[2019-12-11] MEDS ORDERED: SIMVASTATIN 20 MG TABLET PO SCH (22:00)
[2019-12-12] MEDS: BLOOD SUGAR DIAGNOSTIC 1 EACH STRIP IN SCH ×2 (06:25→12:03)
[2019-12-12] MEDS: INSULIN REGULAR, HUMAN 100 UNIT/ML 3 ML VIAL SQ PRN ×2 (06:29→12:23)
--- NOTE | 2019-12-12 06:49 | NUR ---
322-2 ,S/RN NOTES' PATIENT ALERT, ORIENTED ABLE TO VERBALIZE NEEDS, ABLE TO DO SELF CARE WITH SUPERVISION. MONITORED FOR SAFETY. WILL ENDORSE TO AM RN FOR ALMA DELIA. BED LOCKED, CALL LIGHTS WITHIN REACH, WILL MONITOR, INSTRUCT PATIENT TO CALL FOR ASSISTANCE, PATIENT ABLE TO USE WALKER WITH SUPERVISION TO MONITOR FOR ANY CHANGES, WILL ENDORSE TO AM RN FOR ALMA DELIA.
[2019-12-12 07:18] LABS: BASOPHILS % (AUTO) 0.8 % (0.0-2.0); HEMATOCRIT 32 % (39-51); LYMPHOCYTES # (AUTO) 0.8 /CMM (0.8-4.8); LYMPHOCYTES % (AUTO) 13.6 % (20.0-44.0); MEAN CORPUSCULAR HGB CONC 35 g/dl (31.0-36.0); MEAN CORPUSCULAR VOLUME 92 fL (80-96); MONOCYTES # (AUTO) 0.5 /CMM (0.1-1.30); MONOCYTES % (AUTO) 9.3 % (2.0-12.0); NEUTROPHILS # (AUTO) 4.1 /CMM (1.8-8.9); NEUTROPHILS % (AUTO) 72.3 % (43.0-81.0); PLATELET COUNT (AUTO) 221 /CMM (150-450); RED BLOOD CELL COUNT(AUTO) 3.44 MIL/uL (4.5-6.0); WHITE BLOOD COUNT (AUTO) 5.6 K/uL (4.3-11.0)
[2019-12-12 07:32] LABS: CALCIUM, SERUM 8.9 mg/dL (8.5-10.1); CREATININE 2.3 mg/dL (0.6-1.3); MAGNESIUM 2.4 mg/dL (1.8-2.4); PHOSPHORUS 3.2 mg/dL (2.5-4.9); POTASSIUM 4.1 mmol/L (3.5-5.1)
[2019-12-12 08:00] VITALS: BP 110/74
--- NOTE | 2019-12-12 08:00 | NUR ---
MS RN OPENING NOTES Received Patient awake and sitting on FWW. VS stable with no acute distress. Breathing even and unlabored on room air with no respiratory distress. Denies pain. 20g PIV on Left Hand clean, intact, patent and flushing well. Safety precautions in place. Encouraged Patient to call for assist back to bed. All needs rendered at this time. Call light within reach. Will continue to monitor.
[2019-12-12] MEDS: PANTOPRAZOLE 40 MG TABLET.DR PO SCH (08:56)
[2019-12-12] MEDS: BUMETANIDE (1 MG) 1 MG TABLET PO SCH (08:57)
[2019-12-12] MEDS: SPIRONOLACTONE 25 MG TABLET PO SCH (08:57)
[2019-12-12] MEDS: AMLODIPINE BESYLATE 5 MG TABLET PO SCH (08:58)
[2019-12-12] MEDS: ISOSORBIDE MONONITRATE (30MG) 30 MG TAB.SR.24H PO SCH (08:58)
[2019-12-12] MEDS: CARVEDILOL 12.5 MG TABLET PO SCH (08:58)
[2019-12-12] MEDS: FENOFIBRATE NANOCRYS (145 MG) 145 MG TABLET PO SCH (08:59)
[2019-12-12] MEDS: METOLAZONE 2.5 MG TABLET PO SCH (08:59)
[2019-12-12] MEDS: FOLIC ACID 1 MG TABLET PO SCH (08:59)
[2019-12-12] MEDS: LEVOTHYROXINE SODIUM 50 MCG TABLET PO SCH (08:59)
--- NOTE | 2019-12-12 15:00 | NUR ---
REJOGGER met with the pt. bedside to discuss discharge plan. Pt. declined halfway placement. REJOGGER did give pt. homeless packet which contains [facility] [id number] Winter Group Home program list, [facility] located at [address] ; [facility] [place], [address] [place] ; [facility] [place], [address] ; [facility] Homeless Resource Directory which includes food stamps, transitional housing, showers and hot meals etc; Mental Health clinics such as [facility] ; [facility] ; Health clinics;[facility] and Alcohol treatment centers such as [facility], ; [facility] Substance Abuse Hotline and [facility] . Homeless Patient waiver form was signed by the pt. and placed in pt's chart. TAP card was provided. REJOGGER updated KEVIN Odom with pt's discharge plan.
[2019-12-12 16:00] VITALS: BP 110/62
--- NOTE | 2019-12-12 16:20 | NUR ---
MS MERCHANDISE CARRIER NOTES Patient discharged for home at this time. Patient in stable condition. VS stable with no acute distress. Breathing even and unlabored on room air with no respiratory distress. Denies pain. Skin intact. Medication and reconciliation and discharge orders reviewed and explained to Patient. Patient verbalized understanding. All belongings with Patient. Patient will follow up with Tooth Cutter Pinion in 1 week. Patient homeless. Provided tap card. Escorted Patient to the Lobby for safety.
== END 2019-12-12 16:30 | disposition home or self-care (01) | DRG 896 ==
LOC: ER 18:23 → TELE 12-11 01:51 → MED 12-11 10:12
PROC: 5A1D70Z Performance of Urinary Filtration, Intermittent, Less than 6 Hours Per Day (ICD-10-PCS; principal; 2019-12-11)
DX: F10.229 Alcohol dependence with intoxication, unspecified (principal); S06.320A Contusion and laceration of left cerebrum without loss of consciousness, initial encounter; N18.6 End stage renal disease; I21.A1 Myocardial infarction type 2; I13.2 Hypertensive heart and chronic kidney disease with heart failure and with stage 5 chronic kidney disease, or end stage renal disease; E11.22 Type 2 diabetes mellitus with diabetic chronic kidney disease; E03.9 Hypothyroidism, unspecified; D63.1 Anemia in chronic kidney disease; Z79.4 Long term (current) use of insulin; Z86.73 Personal history of transient ischemic attack (TIA), and cerebral infarction without residual deficits; Z59.0 Homelessness; Z99.2 Dependence on renal dialysis; W19.XXXA Unspecified fall, initial encounter; X58.XXXA Exposure to other specified factors, initial encounter; N25.0 Renal osteodystrophy; K70.30 Alcoholic cirrhosis of liver without ascites; Y90.9 Presence of alcohol in blood, level not specified; I25.10 Atherosclerotic heart disease of native coronary artery without angina pectoris; F32.9 Major depressive disorder, single episode, unspecified; I27.20 Pulmonary hypertension, unspecified; Z91.15 Patient's noncompliance with renal dialysis; E78.5 Hyperlipidemia, unspecified; Y92.238 Other place in hospital as the place of occurrence of the external cause; Z79.02 Long term (current) use of antithrombotics/antiplatelets
CPT/HCPCS: 36415; 70450-TC; 71045-TC; 80048-TC; 80061-TC; 80076-TC; 82962-TC; 83690-TC; 83735-TC; 84100-TC; 84484-TC; 85025-TC; 85730-TC; 86706; 87081-TC; 87340; 90935-TC; 93307-TC; 97116-TC; 97530-TC; G0378; J1815